=== PATIENT | male | born 1965 | race Caucasian/White ===

== ENCOUNTER 2019-03-23 12:43 | Observation (INO) | payer OTHER ==
[~2019-03-23] VITALS: Ht 172.7 cm; Wt 104.3 kg
[2019-03-23 13:42] LABS: BASOPHILS # (AUTO) 0.1 (0.0-0.1); BASOPHILS % 0.9 % (0.0-1.0); EOSINOPHILS # (AUTO) 0.3 (0.0-0.4); EOSINOPHILS % 3.1 % (0.0-6.0); HEMATOCRIT 39.4 % (38.2-49.6); HEMOGLOBIN 11.7 g/dL (14.0-18.0); LYMPHOCYTES # (AUTO) 2.2 (1.0-3.2); LYMPHOCYTES % 23.9 % (18.0-39.1); MEAN CORPUSCULAR HEMOGLOBIN 21.1 pg (28-32); MEAN CORPUSCULAR HGB CONC 29.7 g/dL (31-35); MONOCYTES # (AUTO) 0.8 (0.2-0.8); MONOCYTES % 8.1 % (4.4-11.3); NEUTROPHILS % 63.7 % (38.7-80.0); PLATELET COUNT 322 x10e3/uL (140-360); RED BLOOD COUNT 5.55 x10e6/uL (4.3-5.7)
[2019-03-23 13:54] LABS: INR 0.94; PARTIAL THROMBOPLASTIN TIME 24.8 seconds (23.8-35.5); PROTHROMBIN TIME 13.1 seconds (11.9-14.5)
--- NOTE | 2019-03-23 14:00 | Diagnostic Imaging Report ---
CT BRAIN WO HISTORY: Unresponsive COMPARISON: None. TECHNIQUE: Noncontrast axial scans were obtained from skull base to the vertex. Coronal and sagittal reconstructions obtained from the axial data. One or more of the following dose reduction techniques were used: Automated exposure control, adjustment of the mA and/or kV according to patient size, and/or utilization of iterative reconstruction technique. DISCUSSION: Scalp/Skull: Unremarkable. Brain sulci: Appropriate for patient's age. Ventricles: Normal in size and configuration. No hydrocephalus. Extra-axial spaces: No masses or fluid collections. Parenchyma: No abnormal densities. No mass, hemorrhage, or large vascular territory acute infarct. Dural sinuses: No abnormal densities. Sellar/Suprasellar region: Intact. Skull base: Intact. Incidental findings: Minimal carotid siphon calcifications. IMPRESSION: No acute intracranial abnormalities. Signed by: Dr. Omer Smith M.D. on 03/23/2019 1:57 PM
[2019-03-23 14:01] LABS: ALANINE AMINOTRANSFERASE 25 IU/L (0-55); ALBUMIN 3.8 g/dL (3.5-5.0); ALBUMIN/GLOBULIN RATIO 1.3 (0.8-2.0); ALKALINE PHOSPHATASE 47 IU/L (40-150); ANION GAP 14.6 mmol/L (8-16); BLOOD UREA NITROGEN 13 mg/dL (7-26); BUN/CREATININE RATIO 13 (6-25); CALCIUM 8.7 mg/dL (8.4-10.2); CARBON DIOXIDE 20 mmol/L (22-29); CHLORIDE 109 mmol/L (98-107); CREATINE KINASE 113 IU/L (30-200); EST GLOMERULAR FILTRATION RATE > 60 ML/MIN (60-); GLUCOSE 84 mg/dL (74-118); POTASSIUM 3.6 mmol/L (3.5-5.1); SODIUM 140 mmol/L (136-145)
--- NOTE | 2019-03-23 14:51 | Diagnostic Imaging Report ---
EXAMINATION: CHEST SINGLE (PORTABLE) INDICATION: Chest pain COMPARISON: None FINDINGS: LINES/TUBES:EKG leads overlie the chest. LUNGS:The lungs are well-inflated. No focal consolidation or pulmonary edema. PLEURA:No pleural effusion or pneumothorax. MEDIASTINUM:The cardiomediastinal silhouette appears normal in size and shape. BONES/SOFT TISSUES:No acute osseous injury. ABDOMEN:No free air under the diaphragm. IMPRESSION: No focal pneumonia or pulmonary edema. Signed by: Juan Melo MD on 03/23/2019 2:47 PM
[2019-03-23] MEDS ORDERED: ASPIRIN 325 MG TAB EC PO ONE (15:45)
[2019-03-23] MEDS: SODIUM CHLORIDE 0.9% 1000ML 1,000 ML IV SCH ×2 (18:30→23:33)
--- NOTE | 2019-03-23 18:52 | Diagnostic Imaging Report ---
History: Seizure versus TIA, unresponsive Comparison studies: Head CT on 03/23/2019 Technique: Sagittal T2; axial DWI, FLAIR, MPGR, T1, Coronal FLAIR. Intravenous contrast: None Findings: Scalp: Normal in signal . No masses . Bone marrow: Normal in signal intensity. Extra-axial: No masses or fluid collections. Brain sulci: Appropriate for age. Ventricles: Normal in size . No hydrocephalus . Parenchyma: A T2 FLAIR hyperintense focus adjacent to the tip of the left frontal horn is nonspecific. Otherwise, no signal abnormalities. No masses, hemorrhage, acute or chronic cortical ischemic insults. Suprasellar region: No abnormalities. Craniocervical junction: No abnormalities. Patent foramen magnum. No Chiari one malformation. Vessels: Normal flow-voids in the arteries and sinuses. Incidental findings: * Mildly enlarged partially empty sella. * The pituitary stalk is slightly deviated toward the right. * No gross intra or suprasellar abnormalities but evaluation of this region is limited on this brain MRI Incidental T2 hyperintense mucosal thickening in several ethmoid air cells. IMPRESSION: 1. No acute abnormalities. 2. No findings to explain patient's history. 3. Focal ischemic/gliotic changes adjacent to the left frontal horn are nonspecific. Signed by: Dr. Meir Nice M.D. on 03/23/2019 6:48 PM
--- NOTE | 2019-03-23 19:21 | NUR ---
Report and care hand off given to HANK Castaneda. Pt denies any pain or discomfort at the present time. Spouse at bedside.
--- NOTE | 2019-03-23 21:40 | NUR ---
RECEIVED PATIENT FROM ED AT THIS TIME. PATIENT AMBULATED FROM WHEELCHAIR TO CHAIR, STEADY GAIT NOTED. PATIENT A&OX3. NO PAIN REPORTED. NO S&S OF DISTRESS NOTED. ADMISSION ASSESSMENT COMPLETED. L AC 20G IV ASYMPTOMATIC, INTACT, AND PATENT. WILL CONTINUE TO MONITOR CLOSELY. BED LOCKED IN LOWEST POSITION, SIDE RAILS UPX2, CALL LIGHT IN REACH.
[2019-03-23 22:11] VITALS: BP 141/84
[2019-03-23] MEDS ORDERED: HYDRALAZINE HCL 20 MG/ML VIAL IV PRN (22:45)
[2019-03-23] MEDS ORDERED: DEXTROSE 50% SYRINGE 50 ML IV PRN (22:45)
[2019-03-23 23:15] VITALS: BP 141/84
[2019-03-23] MEDS ORDERED: METOPROLOL TART25 MG PO (23:21)
[2019-03-23] MEDS ORDERED: METFORMIN HCL500 MG PO (23:21)
[2019-03-23] MEDS ORDERED: LISINOPRIL10 MG PO (23:21)
[2019-03-24] VITALS (8 sets, daily range): BP systolic 135–145; BP diastolic 69–85
--- NOTE | 2019-03-24 04:39 | History and Physical ---
[facility] PHYSICIAN: Dr. Trent Ca. This is coverage for Dr. Ca. HISTORY OF PRESENT ILLNESS: Mr. Ma is a pleasant 53-year-old gentleman with altered sensorium today. The patient was sitting down at work today at approximately 10:50 a.m. He became unresponsive. His coworkers had shake him to awake him, which did not occur easily. He recalls he had trouble getting words out earlier in the morning. The patient otherwise has not had a history of any neurologic events in the past. Never had any strokes nor seizures either in youth. The patient was brought in by coworkers. Therefore, did not get an immediate glucose check, but at about 1.5 hours after the event his fingerstick glucose was 85 after being given some sugar. He has hypoglycemic spells about once a year only and these are not a chronic problem. He comes to the emergency room. CT head was unremarkable. MRI did have finding of focal ischemic/gliotic changes that adjacent to left frontal horn, which are nonspecific. He also had an enlarged partially empty sella with deviation of the pituitary stalk toward the right. PAST MEDICAL HISTORY: Hypertension, diabetes, obstructive sleep apnea on CPAP. MEDICATIONS: Per medication list. ALLERGIES: NO KNOWN DRUG ALLERGIES. SOCIAL HISTORY: No smoking. No drinking. No drugs. 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 He lives with his spouse, which is moved past in the area in an apartment. FAMILY HISTORY: Noncontributory. REVIEW OF SYSTEMS: GENERAL: No weight changes. OPHTHALMOLOGIC: No double vision. ENT: No mouth ulcers. ENDOCRINE: No thyroid disease known. PULMONARY: No asthma. CARDIAC: No heart attacks. GI: No constipation. : No blood in urine. NEUROLOGIC: No history of concussions. PSYCHIATRIC: No depression. DERMATOLOGIC: No rash. OBJECTIVE: VITAL SIGNS: Afebrile, vital signs noted and reviewed per the chart record. GENERAL: In no acute distress, alert and cooperative. HEENT: Normocephalic, atraumatic. NECK: Supple. Throat midline. LUNGS: Bilateral air entry, clear. CARDIOVASCULAR: S1, S2. No murmurs, rubs, or gallops. ABDOMINAL: Soft, nontender. EXTREMITIES: No clubbing, no cyanosis. There is only trace edema to the legs. INTEGUMENT: No rash, no purpura. LABORATORY DATA: 3.6 potassium, 13 BUN, creatinine 1.0. BNP was 24. Troponin 0.016. LFTs unremarkable. IMPRESSION: 1. Acute neurologic event, under investigation. Possible stroke versus seizure versus other. 2. Abnormal MRI, left frontal more nonspecific change. Possible focal ischemia versus gliotic changes versus other. 3. Abnormal MRI, partially empty sella with pituitary stalk deviation right words. 4. Obstructive sleep apnea, on CPAP. 5. Diabetes with once yearly hypoglycemia. 6. Hypertension. 7. Obesity. Check hemoglobin A1c. Neurologic consult. Check TSH. Give CPAP while inpatient as he requests. Control diabetes and blood pressure while here. Thank you very much, Dr. Ca. Please call for questions. MD DEMETRI Siddiqi/MODL /[id number]
[2019-03-24 05:51] LABS: BASOPHILS # (AUTO) 0.1 (0.0-0.1); BASOPHILS % 0.7 % (0.0-1.0); EOSINOPHILS # (AUTO) 0.3 (0.0-0.4); EOSINOPHILS % 3.6 % (0.0-6.0); HEMATOCRIT 37.5 % (38.2-49.6); LYMPHOCYTES # (AUTO) 1.9 (1.0-3.2); LYMPHOCYTES % 21.9 % (18.0-39.1); MEAN CORPUSCULAR HEMOGLOBIN 20.8 pg (28-32); MEAN CORPUSCULAR HGB CONC 29.3 g/dL (31-35); MONOCYTES # (AUTO) 0.7 (0.2-0.8); MONOCYTES % 8.4 % (4.4-11.3); NEUTROPHILS # (AUTO) 5.5 (2.1-6.9); NEUTROPHILS % 64.9 % (38.7-80.0); PLATELET COUNT 282 x10e3/uL (140-360); RED BLOOD COUNT 5.28 x10e6/uL (4.3-5.7); RED CELL DISTRIBUTION WIDTH 16.9 % (11.7-14.4)
[2019-03-24 06:10] LABS: ANION GAP 11.8 mmol/L (8-16); BLOOD UREA NITROGEN 13 mg/dL (7-26); BUN/CREATININE RATIO 13 (6-25); CALCIUM 8.3 mg/dL (8.4-10.2); CARBON DIOXIDE 23 mmol/L (22-29); CHLORIDE 108 mmol/L (98-107); CREATININE, SERUM 1.02 mg/dL (0.72-1.25); EST GLOMERULAR FILTRATION RATE > 60 ML/MIN (60-); GLUCOSE 119 mg/dL (74-118); MAGNESIUM 2.1 MG/DL (1.3-2.1); PHOSPHORUS 3.5 MG/DL (2.3-4.7); POTASSIUM 3.8 mmol/L (3.5-5.1); SODIUM 139 mmol/L (136-145)
[2019-03-24 06:47] LABS: FREE THYROXINE INDEX 2.1242 (1.4-3.8); THYROID STIMULATING HORMONE 2.014 uIU/mL (0.350-4.940)
[2019-03-24] MEDS: SODIUM CHLORIDE 0.9% 1000ML 1,000 ML IV SCH ×3 (07:33→23:33)
[2019-03-24] MEDS: ASPIRIN 325 MG TAB EC PO SCH (09:50)
--- NOTE | 2019-03-24 17:23 | NUR ---
54-year-old gentleman presented to the hospital Subjective: Patient is doing fine in no distress. No chest pain, no fever, no chills, no headache, no confusion. PAST MEDICAL HISTORY: Hypertension, diabetes, obstructive sleep apnea on CPAP. MEDICATIONS: Per medication list. ALLERGIES: NO KNOWN DRUG ALLERGIES. SOCIAL HISTORY: No smoking. No drinking. No drugs. 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 The patient was doing fine at the time of my evaluation. The patient was in no distress. HEENT: No gross abnormalities Neck: Supple no JVD Lungs: Clear to auscultation Heart: Regular rate and rhythm, no murmurs no gallops Abdomen: Soft non tender, no guarding. Extremities: No edema Neurologic: Alert oriented 3, no focal weakness. Psychiatrist: Normal mood, normal judgment. Skin: No rashes REVIEW OF SYSTEMS: GENERAL: No weight changes. OPHTHALMOLOGIC: No double vision. ENT: No mouth ulcers. ENDOCRINE: No thyroid disease known. PULMONARY: No asthma. CARDIAC: No heart attacks. GI: No constipation. : No blood in urine. NEUROLOGIC: No history of concussions. PSYCHIATRIC: No depression. DERMATOLOGIC: No rash. OBJECTIVE: VITAL SIGNS: Afebrile, vital signs noted and reviewed per the chart record. GENERAL: In no acute distress, alert and cooperative. HEENT: Normocephalic, atraumatic. NECK: Supple. Throat midline. LUNGS: Bilateral air entry, clear. CARDIOVASCULAR: S1, S2. No murmurs, rubs, or gallops. ABDOMINAL: Soft, nontender. EXTREMITIES: No clubbing, no cyanosis. There is only trace edema to the legs. INTEGUMENT: No rash, no purpura. LABORATORY DATA: 3.6 potassium, 13 BUN, creatinine 1.0. BNP was 24. Troponin 0.016. LFTs unremarkable. IMPRESSION: 1. Acute neurologic event, no evidence of stroke, doubt seizures other. 2. Abnormal MRI, left frontal more nonspecific change. Possible focal ischemia versus gliotic changes versus other. 3. Abnormal MRI, partially empty sella with pituitary stalk deviation right words. 4. Obstructive sleep apnea, on CPAP. 5. Diabetes with once yearly hypoglycemia. 6. Hypertension. 7. Obesity. Plan of care Neurologic consult. Check TSH. Give CPAP while inpatient as he requests. Control diabetes and blood pressure. Neuro consult
--- NOTE | 2019-03-24 19:17 | NUR ---
WALKING ROUNDS PERFORMED, RECEIVED PT LAYING SEMI FOWLERS IN BED, AAOX3, RR EVEN AND NON-LABORED, ON ROOM AIR. NO S/SX OF DISTRESS NOTED. LEFT PT LAYING SEMI FOWLERS IN BED, BED IN LOW LOCKED POSITION, SIDE RAILS UPX2, CALL LIGHT AND PHONE WITHIN REACH.
[2019-03-24] MEDS ORDERED: LEVETIRACETAM 500 MG TAB PO SCH (21:00)
[2019-03-25] VITALS: BP 138/80
[2019-03-25 04:00] VITALS: BP 123/72
[2019-03-25] MEDS: SODIUM CHLORIDE 0.9% 1000ML 1,000 ML IV SCH (07:33)
[2019-03-25 08:10] VITALS: BP 136/78
[2019-03-25 08:29] VITALS: BP 136/78
[2019-03-25] MEDS: ASPIRIN 325 MG TAB EC PO SCH (08:32)
--- NOTE | 2019-03-25 08:32 | NUR ---
md greenwood for neuro rounded on pt and states pt can be dc and follow up with him in 2 weeks asked for pt to be kept on taylor
[2019-03-25] MEDS ORDERED: LEVETIRACETAM 500 MG TAB PO SCH (09:00)
[2019-03-25 10:13] VITALS: BP 149/88
[2019-03-25] MEDS ORDERED: KEPPRA500 MG PO (10:56)
[2019-03-25] MEDS ORDERED: ASPIR 8181 MG PO (11:06)
[2019-03-25 11:45] VITALS: BP 144/80
--- NOTE | 2019-03-25 12:06 | NUR ---
DC INSTRUCTIONS AND PRESCRIPTIONS GIVEN PT VERBALIZED UNDERSTANDING IV DC PRESSURE DRESSING APPLIED AND TAPED PT IS NOW OFF UNIT TO HOME
--- OUTSIDE RECORDS SUMMARY | 2019-03-27 12:51 | XMS REPORT ---
Author [facility] Address Unknown Phone Unavailable Care Team Providers Care Automobile Radio Repairer Name Role Phone William ELKINS Unavailable Unavailable Problems This patient has no known problems. Allergies, Adverse Reactions, Alerts This patient has no known allergies or adverse reactions. Medications This patient has no known medications. Results Test Description Test Time Test Comments Text Results Atomic Results Result Comments MRI BRAIN WO 2019-03-23 18:40:00 [facility] [address] [address] Patient Name: JASMYN VALDES MR #: [id number] : 1965 Age/Sex: 53/M Req #: [id number] Adm Physician: TOM ELKINS M.D. Ordered by: ANA RENEE MD Report #: [id number] Location: [facility] Room/Bed: [place] [address] Procedure: [id number] MRI/MRI BRAIN WO Exam Date: Exam Time: REPORT STATUS: Signed History: Seizure versus TIA, unresponsive Comparison studies: Head CT on 03/23/2019 Technique: Sagittal T2; axial DWI, FLAIR, MPGR, T1, Coronal FLAIR. Intravenous contrast: None Findings: Scalp: Normal in signal . No masses . Bone marrow: Normal in signal intensity. Extra- axial: No masses or fluid collections. Brain sulci: Appropriate for age. Ventricles: Normal in size . No hydrocephalus . Parenchyma: A T2 FLAIR hyperintense focus adjacent to the tip of the left frontal horn is nonspecific. Otherwise, no signal abnormalities. No masses, hemorrhage, acute or chronic cortical ischemic insults. Suprasellar region: No abnormalities. Craniocervical junction: No abnormalities. Patent foramen magnum. No Chiari one malformation. Vessels: Normal flow-voids in the arteries and sinuses. Incidental findings: * Mildly enlarged partially empty sella. * The pituitary stalk is slightly deviated toward the right. * No gross intra or suprasellar abnormalities but evaluation of this region is limited on this brain MRI Incidental T2 hyperintense mucosal thickening in several ethmoid air cells. IMPRESSION: 1. No acute abnormalities. 2. No findings to explain patient's history. 3. Focal ischemic/gliotic changes adjacent to the left frontal horn are nonspecific. Signed by: Dr. Meir Nice M.D. on 03/23/2019 6:48 PM Dictated By: MEIR NICE MD, MD 47 Transcribed By: ANANYA on 03/23/191847 COPY TO: ANA RENEE MD CHEST SINGLE (PORTABLE) 2019-03-23 14:47:00 [address] [address] Patient Name: JASMYN VALDES MR #: [id number] : 1965 Age/Sex: 53/M Req #: [id number] Adm Physician: Ordered by: ANA RENEE MD Report #: [id number] Location: ER Room/Bed: Procedure: [id number] DX/CHEST SINGLE (PORTABLE) Exam Date: 03/23/19 Exam Time: 1330 REPORT STATUS: Signed EXAMINATION: CHEST SINGLE (PORTABLE) INDICATION: Chest pain COMPARISON: None FINDINGS: LINES/TUBES:EKG leads overlie the chest. LUNGS:The lungs are well-inflated. No focal consolidation or pulmonary edema. PLEURA:No pleural effusion or pneumothorax. MEDIASTINUM:The cardiomediastinal silhouette appears normal in size and shape. BONES/SOFT TISSUES:No acute osseous injury. ABDOMEN:No free air under the diaphragm. IMPRESSION: No focal pneumonia or pulmonary edema. Signed by: Juan R Melo MD on 03/23/2019 2:47 PM Dictated By: JUAN R MELO MD 144 Transcribed By: ANANYA on 03/23/19 144 COPY TO: ANA RENEE MD CT BRAIN WO 2019-03-23 13:54:00 [address] [address] Patient Name: JASMYN VALDES MR #: [id number] : 1965 Age/Sex: 53/M Req #: [id number] Adm Physician: Ordered by: ANA RNEEE MD Report #: [id number] Location: ER Room/Bed: Procedure: [id number] CT/CT BRAIN WO Exam Date: 03/23/19 Exam Time: 1330 REPORT STATUS: Signed CT BRAIN WO HISTORY: Unresponsive COMPARISON: None. TECHNIQUE: Noncontrast axial scans were obtained from skull base to the vertex. Coronal and sagittal reconstructions obtained from the axial data. One or more of the following dose reduction techniques were used: Automated exposure control, adjustment of the mA and/or kV according to patient size, and/or utilization of iterative reconstruction technique. DISCUSSION: Scalp/Skull: Unremarkable. Brain sulci: Appropriate for patient's age. Ventricles: Normal in size and configuration. No hydrocephalus. Extra-axial spaces: No masses or fluid collections. Parenchyma: No abnormal densities. No mass, hemorrhage, or large vascular territory acute infarct. Dural sinuses: No abnormal densities. Sellar/Suprasellar region: Intact. Skull base: Intact. Incidental findings: Minimal carotid siphon calcifications. IMPRESSION: No acute intracranial abnormalities. Signed by: Dr. Omer Smith M.D. on 03/23/2019 1:57 PM Dictated By: OMER SMITH MD [id number] Transcribed By: ANANYA on 03/23/19 1350 COPY TO: ANA RENEE MD
--- NOTE | 2019-03-27 19:51 | Consultation ---
DATE OF CONSULTATION: 03/25/2019 Neurological consultation. Seen for possible seizures. HISTORY OF PRESENT ILLNESS: Mr. Ma is a 53-year-old male who comes under my attention for possible seizures. He has a history of diabetes, was on pacemaker at the time of his admission. He reports no history of seizures or convulsions. Reports that he is doing his job. He became suddenly unresponsive with staring spell and was transferred by EMS to the hospital. He has history of epilepsy. Review of systems is entirely negative. FAMILY HISTORY: Negative for epilepsy. SOCIAL HISTORY: Negative for alcohol, tobacco or drugs. PHYSICAL EXAMINATION: VITAL SIGNS: Stable. He is afebrile. Blood pressure is 120s/70s, heart rate is 88. HEENT: Extraocular muscles intact. Face midline. Tongue is midline. Speech is clear. Trachea is midline. No nuchal rigidity. NECK: No lymphadenopathy. No thyroid nodules. CARDIOVASCULAR: Regular rate and rhythm. PULMONARY: Clear. ABDOMEN: Soft and nontender. NEUROLOGIC: Strength is 5/5 in the upper and lower extremities. No ataxia. ASSESSMENT AND PLAN: I am seeing the patient for possible seizures. No evidence of epilepsy . Diagnostic studies, MRI is normal other than a small bihemispheric gliosis. Because of this we might be slightly suspicious . Monitor him for possible recurrence, see him as an outpatient for EEG and workup. It sounds like he has epilepsy diagnostic clearance and follow him clinically going forward. EYAD LOPEZ MD RR/MODL /[id number]
--- NOTE | 2019-05-14 13:24 | Discharge Summary ---
FINAL DIAGNOSES: 1. Altered mental status, unspecified. 2. History of hypertension. 3. Obstructive sleep apnea. 4. Obesity. 5. Presence of cardiac pacemaker. 6. Type 2 diabetes mellitus without complications. 7. Unspecified convulsions. HOSPITAL COURSE: Mr. Ma is a very pleasant 53-year-old gentleman, admitted to the hospital with altered mental status from his baseline and the patient is noted to have a history of hypertension, diabetes mellitus, and obstructive sleep apnea, for which he is presently on CPAP. The patient did have MRI and the findings were that of ischemic/gliotic changes that adjacent to below frontal horn, which were nonspecific. He was noted to have an enlarged partially empty sella with deviation of towards the right. Basically, the patient did remain in stable condition. He was followed by Neurology, did well and seen by Dr. Dewey from neuro standpoint, who determined the patient was stable for discharge and will have followup with EEG outpatient workup. Instructions were given Neuro regarding restrictions. The patient has done well and he is being discharged in stable condition and doubt he had a seizure episode. DIET: diet. ACTIVITY LEVEL: As tolerated. CONDITION AT THE TIME OF DISCHARGE: Stable. DISPOSITION: The patient is being advised to follow up with patient's primary care physician. MD JAKI Mcgregor/MANN /[id number]
== END 2019-03-25 12:03 | disposition home or self-care (01) ==
LOC: ER 12:43 → ERHOLD 15:33 → INTOOBSV 15:33 → MED/SURG 21:50
PROVIDERS: ADMIT Internal Medicine; ATTEND Internal Medicine
DX: R56.9 Unspecified convulsions (principal); G47.33 Obstructive sleep apnea (adult) (pediatric); E66.9 Obesity, unspecified; Z68.35 Body mass index [BMI] 35.0-35.9, adult; Z95.0 Presence of cardiac pacemaker; I10 Essential (primary) hypertension; R93.89 Abnormal findings on diagnostic imaging of other specified body structures; E11.9 Type 2 diabetes mellitus without complications
CPT/HCPCS: 36415 ×3; 70450; 70551; 71045; 80048; 80053; 82550; 82553; 82948 ×3; 83036; 83735; 83880; 84100; 84436; 84443; 84479; 84484; 85025 ×2; 85610; 85730; 93005; 93306; 94660 ×2; 97161; 99284; G0378 ×3; J7030 ×2

== ENCOUNTER 2020-02-22 13:18 | Observation (INO) | payer OTHER ==
[~2020-02-22] VITALS: Ht 172.7 cm; Wt 99.8 kg
[~2020-02-22 13:18] MED LIST: ASPIR 8181 MG PO; KEPPRA500 MG PO; LISINOPRIL10 MG PO; METFORMIN HCL500 MG PO; METOPROLOL TART25 MG PO
[2020-02-22] MEDS ORDERED: ONDANSETRON HCL INJ 2MG/ML 2ML 2 MG/ML VIAL IV NR (13:44)
[2020-02-22] MEDS ORDERED: SODIUM CHLORIDE 0.9% 1000ML 1,000 ML IV STA (13:44)
[2020-02-22] MEDS ORDERED: MORPHINE SULFATE 2 MG/ML SYR 1ML IV NR (13:44)
--- NOTE | 2020-02-22 13:44 | Emergency Department Note ---
History of Present Illnes History of Present Illness Chief Complaint: Chest Pain History of Present Illness This is a 54 year old male PATIENT IN FROM HOME WITH COMPLAINTS OF RORY ST PAIN OFF AND ON X 6 DAYS, RADIATES TO BACK. +ASSOC SOB AND "CLAMMY"; STATES IT HAS BEEN CONSTANT SINCE THIS AFTERNOON. PATIENT ALERT AND ORIENTED, RESP EVEN AND NONLABORED, APPEARS IN NO DISTRESS, AMBULATORY WITHOUT ASSISTANCE, RATES PAIN 5/10. Historian: Patient Arrival Mode: Car Application Systems Administrator Required: No Onset (how long ago): day(s) (6) Location: CHEST Quality: PRESSURE Radiation: Reports back Severity: moderate Onset quality: gradual Timing of current episode: intermittent Progression: waxing and waning Chronicity: new Context: Denies recent illness Relieving factors: none Exacerbating factors: none Associated symptoms: Reports diaphoresis, Reports shortness of breath Past Medical/Family History Physician Review I have reviewed the patient's past medical and family history. Any updates have been documented here. Past Medical History Recent Fever: No Clinical Suspicion of Infectio: No New/Unexplained Change in Ment: No Past Medical History: Hypertension, Diabetes, Hyperlipedemia Other Medical History: Sleep Apnea-uses CPAP at night Other Surgery: Left knee bilateral Ankle surgery Social History Smoking Cessation: Never Smoker Counseling Performed: No Alcohol Use: Social Any Illegal Drug Use: No TB Exposure/Symptoms: No Physically hurt or threatened: No Family History Family history of heart diseas: Yes Other Any Pre-Existing Lines (PICC,: No Review of Systems Review of Systems Constitutional: Reports no symptoms EENTM: Reports no symptoms Cardiovascular: Reports as per HPI Respiratory: Reports no symptoms Gastrointestinal: Reports no symptoms Genitourinary: Reports no symptoms Musculoskeletal: Reports no symptoms Integumentary: Reports no symptoms Neurological: Reports no symptoms Psychological: Reports no symptoms Endocrine: Reports no symptoms Hematological/Lymphatic: Reports no symptoms Physical Exam Related Data Allergies: Coded Allergies: No Known Allergies (Unverified , 02/22/20) Triage Vital Signs Vital Signs Date Time Temp Pulse Resp B/P (MAP) Pulse Ox O2 Delivery O2 Flow Rate FiO2 02/22/20 13:25 96.3 69 20 152/93 99 Room Air Vital signs reviewed: Yes Physical Exam CONSTITUTIONAL Constitutional: Present well-developed, Present well-nourished HENT HENT: Present normocephalic, Present atraumatic, Present oropharynx clear/moist, Present nose normal HENT L/R: Present left ext ear normal, Present right ext ear normal EYES Eyes: Reports PERRL, Reports conjunctivae normal NECK Neck: Present ROM normal PULMONARY Pulmonary: Present effort normal, Present breath sounds normal CARDIOVASCULAR Cardiovascular: Present regular rhythm, Present heart sounds normal, Present capillary refill normal, Present normal rate GASTROINTESTINAL Abdominal: Present soft, Present nontender, Present bowel sounds normal GENITOURINARY Genitourinary: Present exam deferred SKIN Skin: Present warm, Present dry MUSCULOSKELETAL Musculoskeletal: Present ROM normal NEUROLOGICAL Neurological: Present alert, Present oriented x 3, Present no gross motor or sensory deficits PSYCHOLOGICAL Psychological: Present mood/affect normal, Present judgement normal Results Laboratory Laboratory Laboratory Tests Test 02/22/20 13:40 White Blood Count 7.29 x10e3/uL (4.8-10.8) Red Blood Count 4.96 x10e6/uL (4.3-5.7) Hemoglobin 13.4 g/dL (14.0-18.0) Hematocrit 39.4 % (38.2-49.6) Mean Corpuscular Volume 79.4 fL (81-99) Mean Corpuscular Hemoglobin 27.0 pg (28-32) Mean Corpuscular Hemoglobin Concent 34.0 g/dL (31-35) Red Cell Distribution Width 15.2 % (11.7-14.4) Platelet Count 234 x10e3/uL (140-360) Neutrophils (%) (Auto) 72.6 % (38.7-80.0) Lymphocytes (%) (Auto) 18.4 % (18.0-39.1) Monocytes (%) (Auto) 6.6 % (4.4-11.3) Eosinophils (%) (Auto) 1.4 % (0.0-6.0) Basophils (%) (Auto) 0.7 % (0.0-1.0) Neutrophils # (Auto) 5.3 (2.1-6.9) Lymphocytes # (Auto) 1.3 (1.0-3.2) Monocytes # (Auto) 0.5 (0.2-0.8) Eosinophils # (Auto) 0.1 (0.0-0.4) Basophils # (Auto) 0.1 (0.0-0.1) Absolute Immature Granulocyte (auto 0.02 x10e3/uL (0-0.1) Prothrombin Time 13.2 seconds (11.9-14.5) Prothromb Time International Ratio 0.95 Activated Partial Thromboplast Time 25.0 seconds (23.8-35.5) D-Dimer Quantitative (PE/DVT) 0.43 ug/mLFEU (0.00-0.45) Sodium Level 139 mmol/L (136-145) Potassium Level 3.7 mmol/L (3.5-5.1) Chloride Level 108 mmol/L (98-107) Carbon Dioxide Level 24 mmol/L (22-29) Anion Gap 10.7 mmol/L (8-16) Blood Urea Nitrogen 13 mg/dL (7-26) Creatinine 0.73 mg/dL (0.72-1.25) Estimat Glomerular Filtration Rate > 60 ML/MIN (60-) BUN/Creatinine Ratio 18 (6-25) Glucose Level 89 mg/dL (74-118) Calcium Level 8.6 mg/dL (8.4-10.2) Total Bilirubin 0.4 mg/dL (0.2-1.2) Aspartate Amino Transf (AST/SGOT) 22 IU/L (5-34) Alanine Aminotransferase (ALT/SGPT) 30 IU/L (0-55) Alkaline Phosphatase 54 IU/L (40-150) Creatine Kinase 110 IU/L (30-200) Creatine Kinase MB 3.00 ng/mL (0-5.0) Troponin I 0.009 ng/mL (0-0.300) B-Type Natriuretic Peptide 43.2 pg/mL (0-100) Total Protein 6.9 g/dL (6.5-8.1) Albumin 4.2 g/dL (3.5-5.0) Globulin 2.7 g/dL (2.3-3.5) Albumin/Globulin Ratio 1.6 (0.8-2.0) Lab results reviewed: Yes Imaging Imaging results reviewed: Yes Procedures 12 Lead ECG Interpretation ECG Interpretation : ECG: ECG 1 Application Systems Administrator: Interpreted by ED physician Date: Feb 22, 2020 Time: 13:32 Rhythm: sinus rhythm Rate: normal BPM: 72 QRS axis: normal ST segments normal: Yes T waves normal: Yes Additional Comments POOR RWP Assessment & Plan Medical Decision Making MDM CHEST PAIN TYPICAL SX'S AND MULTIPLE RF'S - CBC, CHEM, CARDIACS, D-DIMER, ECG, CXR - R/O STEMI/NSTEMI, PE, PNEUMONIA/NON-CARDIAC CAUSES OF CP Reassessment Reassessment ADMIT TO DR CRESPO Assessment & Plan Final Impression: (1) Chest pain Depart Disposition: ADMITTED Last Vital Signs Date Time Temp Pulse Resp B/P (MAP) Pulse Ox O2 Delivery O2 Flow Rate FiO2 02/22/20 13:25 96.3 69 20 152/93 99 Room Air Home Meds Active Scripts Aspirin (ASPIR 81) 81 Mg Tablet.dr, 81 MG PO DAILY for 30 Days, 2 Refills Prov:TOM ELKINS MD 03/25/19 Levetiracetam (KEPPRA) 500 Mg Tablet, 500 MG PO BID for 30 Days, 1 Refill Prov:TOM ELKINS MD 03/25/19 Reported Medications Metformin Hcl (METFORMIN HCL) 500 Mg Tablet, 1000 MG PO BID, #60 TAB 03/23/19 Metoprolol Tartrate (METOPROLOL TARTRATE) 25 Mg Tablet, 12.5 MG PO BID, TAB 03/23/19 Lisinopril (LISINOPRIL) 10 Mg Tablet, 10 MG PO DAILY, #30 TAB 03/23/19 ANYA DUPREE MD Feb 22, 2020 13:44
[2020-02-22] MEDS ORDERED: ASPIRIN 81 MG CHEW TAB PO NR (13:45)
[2020-02-22] MEDS ORDERED: PANTOPRAZOLE 40 MG 10ML VIAL IV NR (14:00)
[2020-02-22] MEDS ORDERED: ENOXAPARIN SODIUM INJ 100 MG/ML SYR SC ONE (14:00)
--- OUTSIDE RECORDS SUMMARY | 2020-02-22 14:06 | XMS REPORT | Continuity of Care Document ---
Author Author [facility] t Organization [facility] Address [address] [place] [address] Phone Unavailable Care Team Providers Care Deburring Technician Name Role Phone NONSTAFF PCP Unavailable Florin Eid Attphys William ELKINS Attphys Unavailable Milly Montgomery RN Attphys Unavailable William ELKINS Admphys Unavailable Payers Payer Name Policy Type Policy Number Effective Date Expiration Date Alireza humphrey VENU OPEN ACCESS/[id number] 2016-PresentO [id number] 2016 00:00:00 Rishabh Pavon Cigvandana o [id number] 2016 00:00:00 [facility] Problems Condition Name Condition Details Condition Category Status Onset Date Resolution Date Last Treatment Date Treating Clinician Comments Source Screening for colon cancer Screening for colon cancer Disease Active 2018-06-05 00:00:00 Overview: Added automaticall y from request for surgery [id number] Rishabh Pavon Chest pain Chest pain Disease Active 2016-11-01 00:00:00 Rishabh Pavon Allergic rhinitis Allergic rhinitis Disease Active 2015-06-10 00:00:00 Rishabh Pavon Axillary lymphadenopathy Axillary lymphadenopathy Disease Acti ve 2015-06-10 00:00:[address] Chest pain Chest pain Disease Active 2015-06-10 00:00:00 Rishabh Pavon Diabetes mellitus Diabetes mellitus Disease Active 2015-06-10 00:00:00 Rishabh Pavon Hypertension Hypertension Disease Active 2015-06-10 00:00:00 Rishabh Pavon Iron deficiency anemia Iron deficiency anemia Disease Active 2015-06-10 00:00:[address] Low back pain Low back pain Disease Active 2015-06-10 00:00:00 Rishabh Pavon Obesity Obesity Disease Active 2015-06-10 00:00:00 Rishabh Pavon Upper respiratory infection Upper respiratory infection Disease Active 2015-06-10 00:00:00 Rishabh Pavon Vitamin B deficiency Vitamin B deficiency Disease Active 00:00:00 Rishabh Pavon Vitamin D deficiency Vitamin D deficiency Disease Active 00:00:00 Rishabh Pavon Absence epilepsy Absence epilepsy Problem Active [facility] Transient ischemic attack TIA (transient ischemic attack) Problem Active [facility] Allergies, Adverse Reactions, Alerts This patient has no known allergies or adverse reactions. Family History Family Member Diagnosis Comments Start Date Stop Date Source Natural [facility] father Heart disease Rishabh Pavon Natural father Hypertension Rishabh Pavon Natural mother [facility] Social History Social Habit Start Date Stop Date Quantity Comments Source History SDOH Alcohol Std Drinks Rishabh Pavon History SDOH Alcohol Binge Rishabh Pavon Sex Assigned At Martín stoki Pavon Tobacco use and exposure 2019-01-05 00:00:00 2019-01-05 00:00:00 Neve r used Rishabh Pavon Alcohol intake 2019-01-05 00:00:00 2019-01-05 00:00:00 Current drinker of alcohol (finding) Rishabh Pavon History SDOH Alcohol Frequency 2019-01-05 00:00:00 2019-01-05 00:00:0 0 2 Rishabh Pavon Alcohol Comment 2018-06-05 00:00:00 2018-06-05 00:00:00 maybe once a month Rishabh Pavon Smoking Status Start Date Stop Date Source Never smoker Rishabh bond Medications Ordered Medication Name Filled Medication Name Start Date Stop Da te Current Medication? Ordering Clinician Indication Dosage Frequency Signature (SIG) Comments Components Source metFORMIN (GLUCOPHAGE) 1,000 mg tablet 2020-02-22 00:00:00 Yes TAKE 1 TABLET BY MOUTH TWICE A DAY WITH FOOD Rishabh Pavon atorvastatin (LIPITOR) 40 mg tablet 2020-02-16 00:00:00 Yes Mixed hyperlipidemia TAKE 1/2 TABLET BY MOUTH EVERY DAY Rishabh Pavon metFORMIN (GLUCOPHAGE) 1,000 mg tablet 2020-01-08 1 00:00:00 2020-02-22 00:00:00 No TAKE 1 TABLET BY MOUTH TWICE A D AY WITH FOOD Rishabh Pavon metoprolol tartrate (LOPRESSOR) 25 mg tablet 00:00:00 2020-04-23 23:59:00 Yes Essential hypertension TAKE 1 TABLET BY MOUTH TWICE A DAY Rishabh Pavon ferrous gluconate (FERGON) 324 MG tablet 2020-01-03 00:00:00 Yes Iron deficiency anemia, unspecified iron deficiency anemia type TAKE 1 TABLET BY MOUTH EVERY DAY IN THE MORNING WITH BREAKFAST Rishabh Pavon metFORMIN (GLUCOPHAGE) 1,000 mg tablet 2019-12-09 7 00:00:00 2020-01-27 00:00:00 No TAKE 1 TABLET BY MOUTH TWICE A D AY WITH FOOD Rishabh Pavon metFORMIN (GLUCOPHAGE) 1,000 mg tablet 2019-12-05 00:00:00 No TAKE 1 TABLET BY MOUTH TWICE A DAY WITH FOOD Darren Pavon metFORMIN (GLUCOPHAGE) 1,000 mg tablet 3 00:00:00 2019-12-05 00:00:00 No TAKE 1 TABLET BY MOUTH TWICE A D AY WITH FOOD Rishabh Pavon phentermine (ADIPEX-P) 37.5 mg tablet 2019-08-20 00:00 :00 2019-09-20 23:59:00 No Obesity (BMI 30-39.9) 37.5mg QD Take 1 tablet (37.5 mg total) by mouth daily for 31 days. Rishabh Pvaon phentermine (ADIPEX-P) 37.5 mg tablet 2019-08-18 00:00 :00 2019-08-20 00:00:00 No Obesity (BMI 30-39.9) 37.5mg QD Take 1 tablet (37.5 mg total) by mouth daily for 31 days. Rishabh Pavon metoprolol tartrate (LOPRESSOR) 25 mg tablet 2019-07-28 00:0 0:00 No Essential hypertension TAKE 1 TABLET BY MOUTH TWICE A DAY Rishabh Pavon metFORMIN (GLUCOPHAGE) 1,000 mg tablet 2019-07-08 4 00:00:00 2019-09-09 00:00:00 No TAKE 1 TABLET BY MOUTH TWICE A D AY WITH FOOD Rishabh Pavon ferrous gluconate (FERGON) 324 MG tablet 2019-07-13 00:00:00 No Iron deficiency anemia, unspecified iron deficiency anemia type TAKE 1 TABLET BY MOUTH EVERY DAY IN THE MORNING WITH BREAKFAST Rishabh Pavon metoprolol tartrate (LOPRESSOR) 25 mg tablet 00:00:00 2019-07-28 00:00:00 No Essential hypertension TAKE 1 TABLET BY MOUTH TWICE A DAY Rishabh Pavon metFORMIN (GLUCOPHAGE) 1,000 mg tablet 2019-06-07 8 00:00:00 2019-07-21 00:00:00 No TAKE 1 TABLET BY MOUTH TWICE A D AY WITH FOOD Rishabh Pavon metoprolol tartrate (LOPRESSOR) 25 mg tablet 00:00:00 2019-07-01 00:00:00 No Essential hypertension TAKE 1 TABLET BY MOUTH TWICE A DAY Rishabh Pavon atorvastatin (LIPITOR) 40 MG tablet 2019-05-27 00:00:0 0 2020-02-16 00:00:00 No Mixed hyperlipidemia TAKE 1/2 TABLET BY MOUTH EV CELIA DAY Rishabh Pavon metFORMIN (GLUCOPHAGE) 1,000 mg tablet 2019-05-09 9 00:00:00 2019-06-24 00:00:00 No TAKE 1 TABLET BY MOUTH TWICE A D AY WITH FOOD Rishabh Pavon metoprolol tartrate (LOPRESSOR) 25 mg tablet 00:00:00 2019-06-08 00:00:00 No Essential hypertension TAKE 1 TABLET BY MOUTH TWICE A DAY Rishabh Pavon metFORMIN (GLUCOPHAGE) 1,000 mg tablet 2019-04-09 0 00:00:00 2019-05-27 00:00:00 No TAKE 1 TABLET BY MOUTH TWICE A D AY WITH FOOD Rishabh Pavon metoprolol tartrate (LOPRESSOR) 25 mg tablet 00:00:00 2019-05-11 00:00:00 No Essential hypertension TAKE 1 TABLET BY MOUTH TWICE A DAY Rishabh Pavon metFORMIN (GLUCOPHAGE) 1,000 mg tablet 2019-03-09 3 00:00:00 2019-04-27 00:00:00 No TAKE 1 TABLET BY MOUTH TWICE A D AY WITH FOOD Rishabh Pavon Aspirin (Aspir 81) 81 Mg Tablet. Aspirin (Aspir 81) 81 Mg Tablet. 2019-03-25 00:00:00 Yes Tom Whitman M.d. 81 Daily [facility] Levetiracetam (Keppra) 500 Mg Tablet Levetiracetam (Keppra) 500 Mg Tablet 2019-03-25 00:00:00 Yes Tom Whitman M.d. 500 T wice A Day [facility] metoprolol tartrate (LOPRESSOR) 25 mg tablet 12-18-08 00:00:00 2019-04-13 00:00:00 No Essential hypertension TAKE 1 TABLET BY MOUTH TWICE A DAY Rishabh Pavon metFORMIN (GLUCOPHAGE) 1,000 mg tablet 2019-02-08 0 00:00:00 2019-03-30 00:00:00 No TAKE 1 TABLET BY MOUTH TWICE A D AY WITH FOOD Rishabh Pavon metoprolol tartrate (LOPRESSOR) 25 mg tablet 12-17-12 00:00:00 2019-03-15 00:00:00 No Essential hypertension TAKE 1 TABLET BY MOUTH TWICE A DAY Rishabh Pavon metFORMIN (GLUCOPHAGE) 1,000 mg tablet 4 00:00:00 2019-03-05 00:00:00 No TAKE 1 TABLET BY MOUTH TWICE A D AY WITH FOOD Rishabh Pavon TRULICITY 0.75 mg/0.5 mL pen injector 2019-02-02 00:00:00 Yes Type 2 diabetes mellitus with other specified complication, with long-term current use of insulin (HCC) INJECT 0.75MG SUBCUTANEOUSLY EVERY 7 DAYS Rishabh Pavon ferrous gluconate (FERGON) 324 MG tablet 2019-01 00:00:00 2019-07-13 00:00:00 No Iron deficiency anemia, unspecif ied iron deficiency anemia type 324mg QD Take 1 tablet (324 mg total) by mouth daily with breakfast for 90 days. Rishabh Pavon blood sugar diagnostic strip 2019-01-05 15:01:21 Y es Type 2 diabetes mellitus without complication (HCC) OneTouch Ultra Test st rips Rishabh Pavon blood sugar diagnostic strips (ONETOUCH ULTRA TEST) strip te st strips 2019-01-05 15:01:21 Yes OneTouch Ultra Christopher t strips Rishabh Pavon testosterone cypionate (DEPOTESTOTERONE CYPIONATE) 100 mg/mL injection 2019-01-05 15:01:21 Yes Q7D Inject into the shoulder, thigh, or buttocks once a week. Rishabh Pavon anastrozole (ARIMIDEX) 1 mg chemo tablet 2018-12-20 00:00:00 Yes Q7D once a week. Rishabh Pavon lisinopril-hydrochlorothiazide (PRINZIDE,ZESTORETIC) 20-12.5 mg per tablet 2018-11-25 00:00:00 2019-02-23 23:59:00 No Essential hypertensi on TAKE 1 TABLET BY MOUTH EVERY DAY Rishabh Chung isvarun phentermine (ADIPEX-P) 37.5 mg tablet 2018-09-25 00:00 :00 2019-08-18 00:00:00 No TAKE ONE (1) TABLET(S) BY MOUTH DAILY. Rishabh Pavon topiramate (TOPAMAX) 50 MG tablet 2018-09-19 00:00:00 Yes Rishabh Pavon atorvastatin (LIPITOR) 40 MG tablet 2018-06-02 00:00:0 0 2019-05-27 00:00:00 No Mixed hyperlipidemia 20mg QD Take 0.5 tablets (2 0 mg total) by mouth daily. Rishabh Pavon lancets (ACCU-CHEK MULTICLIX LANCET) [facility] 2016-11-07 00:00:00 Yes 1 qd Rishabh Pavon Lisinopril 10 Mg Tablet Lisinopril 10 Mg Tablet Yes 10 Daily [facility] Metformin Hcl 500 Mg Tablet Metformin Hcl 500 Mg Tablet Yes 1000 Twice A Day [facility] Metoprolol Tartrate 25 Mg Tablet Metoprolol Tartrate 25 Mg Tablet Yes 12.5 Twice A Day [facility] Immunizations Ordered Immunization Name Filled Immunization Name Date Status Comments Source FLUCELVAX QUAD PF 2018-12-26 00:00:00 Completed Rishabh Pavon Zoster Vaccine Recombinant 2017-12-24 00:00:00 Completed Rishabh Pavon FLUCELVAX QUAD PF 2017-12-24 00:00:00 Completed Rishabh Pavon Pneumococcal Conjugate 13-Valent 2016-11-02 00:00:00 Compl eted Rishabh Pavon Tdap 2013-11-06 00:00:00 Yasir Pavon Procedures Procedure Date / Time Performed Performing Clinician [facility] e Computed tomography of brain without radiopaque contrast 201 12-19-15 00:00:00 ANA RENEE [facility] Magnetic resonance imaging of brain without contrast 2019-03 00:00:00 ANA RENEE [facility] Plan of Care Planned Activity Planned Date Details Comments Source Future Scheduled Test 2019-11-07 00:00:00 INFLUENZA VACCINE [code = INFLUENZA VACCINE] [facility] Future Scheduled Test 2018-02-23 00:00:00 SHINGLES VACCINES (#2) [code = SHINGLES VACCINES (#2)] [facility] Future Scheduled Test 2016 00:00:00 COLONOSCOPY SCREEN ING [code = COLONOSCOPY SCREENING] [facility] Future Scheduled Test 1976 00:00:00 DIABETES: RETINAL EYE EXAM [code = DIABETES: RETINAL EYE EXAM] [facility] Future Scheduled Test 1976 00:00:00 DIABETIC FOOT EXAM [code = DIABETIC FOOT EXAM] [facility] Future Scheduled Test 1976 00:00:00 URINE MICROALBUMIN [code = URINE MICROALBUMIN] [facility] Encounters Start Date/Time End Date/Time Encounter Type Admission [facility] ID Source 2019-07-06 00:00:00 2019-07-06 00:00:00 Outpatient MARIO ESPINOZA [facility] [id number] [facility] 2019-03-23 15:33:00 2019-03-25 12:03:00 Discharged Inpatient (obs) 1 JULIET TOM WHITMAN [facility] [id number] [facility] Results Test Description Test Time Test Comments Results Result Comments Source Bedside Glucose 2019-03-25 08:05:00 Test Item Bedside Glucose (test code = 38894-2) 100 70-120 M[facility]: [id number] [facility] 2019-03-24 06:47:00* Test Item Value Reference Range Interpretation Comments Free Thyroxine Index (test code = 05164-7) 2.1242 1.4-3.8 [facility]yroxine (T4)2019-03-24 06:47:00* Test Item Value Reference Range Interpretation Comments Thyroxine (T4) (test code = 3026-2) 5.34 4.5-10.9 [facility] PasoTriiodothyronine (T3) [id number] 06:47:00* Test Item Value Reference Range Interpretation Comments Triiodothyronine (T3) Uptake (test code = 3050-2) 39.78 22.5 -37.0 H [facility] PasoThyroid Stimulating Hormone (TSH) 2019-03-24 06:47:00* Test Item Value Reference Range Interpretation Comments Thyroid Stimulating Hormone (TSH) (test code = 16601-4) 2.014 0.350-4.940 [facility] Bpgkc4721-54-99 06:16:00* Test Item Value Reference Range Interpretation Comments Sodium Level (test code = 2951-2) 139 136-145 [facility]Potassium Iqpxi8141-52-98 06:16:00* Test Item Value Reference Range Interpretation Comments Potassium Level (test code = 2823-3) 3.8 3.5-5.1 [facility] PasoChloride Cydhi7949-62-09 06:16:00* Test Item Value Reference Range Interpretation Comments Chloride Level (test code = 2075-0) 108 98-107 H [facility] PasoCarbon Dioxide Pckwb3734-80-73 06:16:00* Test Item Value Reference Range Interpretation Comments Carbon Dioxide Level (test code = 2028-9) 23 22-29 [facility] PasoAnion Psr9362-34-03 06:16:00* Test Item Value Reference Range Interpretation Comments Anion Gap (test code = 39096-3) 11.8 8-16 [facility] PasoBlood Urea Imyizwps9700-75-36 06:16:00* Test Item Value Reference Range Interpretation Comments Blood Urea Nitrogen (test code = 3094-0) 13 7-26 [facility] PasoCreatinine2019-12-17 06:16:00* Test Item Value Reference Range Interpretation Comments Creatinine (test code = 2160-0) 1.02 0.72-1.25 [facility] PasoBUN/Creatinine Bsdeu6789-97-79 06:16:00* Test Item Value Reference Range Interpretation Comments BUN/Creatinine Ratio (test code = 3097-3) 13 6-25 [facility] PasoEstimat Glomerular Filtration Rate 2019-03-24 06:16:00* Test Item Value Reference Range Interpretation Comments Estimat Glomerular Filtration Rate (test code = 126416576) > 60 >60 Ranges were taken from the National Kidney Disease Education Program and the [facility] literature.Reference ranges:60 or greater: Sulaws36-78 ( for 3 consecutive months): Chronic kidney disease 15 or less: Kidney failureFoundation Surgical Hospital of El PasoGlucose Xqhct0363-40-29 06:16:00* Test Item Value Reference Range Interpretation Comments Glucose Level (test code = XJO7170) 119 74-118 H [facility] PasoCalcium Xleck4324-01-00 06:16:00* Test Item Value Reference Range Interpretation Comments Calcium Level (test code = 93315-0) 8.3 8.4-10.2 L [facility] PasoPhosphorus Umems8352-80-49 06:16:00* Test Item Value Reference Range Interpretation Comments Phosphorus Level (test code = SJP3647) 3.5 2.3-4.7 [facility] PasoMagnesium Gfcya7951-42-70 06:16:00* Test Item Value Reference Range Interpretation Comments Magnesium Level (test code = 74164-6) 2.1 1.3-2.1 [facility] PasoHemoglobin A1c Loyoniv1752-89-62 06:05:00 * Test Item Value Reference Range Interpretation Comments Hemoglobin A1c Percent (test code = Hemoglobin A1c Percent) 6.2 4.0-7.0 [facility] PasoWhite Blood Eruja6360-21-60 05:58:00* Test Item Value Reference Range Interpretation Comments White Blood Count (test code = 6690-2) 8.53 4.8-10.8 [facility] PasoRed Blood Pzkhf4017-04-71 05:58:00* Test Item Value Reference Range Interpretation Comments Red Blood Count (test code = 789-8) 5.28 4.3-5.7 [facility] PasoHemoglobin2019-12-17 05:58:00* Test Item Value Reference Range Interpretation Comments Hemoglobin (test code = 81308-8) 11.0 14.0-18.0 L [facility] PasoHematocrit2019-12-17 05:58:00* Test Item Value Reference Range Interpretation Comments Hematocrit (test code = 4544-3) 37.5 38.2-49.6 L [facility] PasoMean Corpuscular Ybpiem1825-82-15 05:58:00* Test Item Value Reference Range Interpretation Comments Mean Corpuscular Volume (test code = 787-2) 71.0 81-99 L [facility] PasoMean Corpuscular Kupjnhihvl0411-73-78 05:58:00* Test Item Value Reference Range Interpretation Comments Mean Corpuscular Hemoglobin (test code = 785-6) 20.8 28-32 L [facility] PasoMean Corpuscular Hemoglobin Concent 2019-03-24 05:58:00* Test Item Value Reference Range Interpretation Comments Mean Corpuscular Hemoglobin Concent (test code = 786-4) 29.3 31-35 L [facility] PasoRed Cell Distribution Ajekv0523-34-64 05:58:00* Test Item Value Reference Range Interpretation Comments Red Cell Distribution Width (test code = 53984-9) 16.9 11.7 -14.4 H [facility] PasoPlatelet Nnnzg6927-62-09 05:58:00* Test Item Value Reference Range Interpretation Comments Platelet Count (test code = 777-3) 282 140-360 [facility] PasoNeutrophils (%) (Auto)2019-03-24 05:58:00 * Test Item Value Reference Range Interpretation Comments Neutrophils (%) (Auto) (test code = 55668-3) 64.9 38.7-80.0 [facility] PasoLymphocytes (%) (Auto)2019-03-24 05:58:00 * Test Item Value Reference Range Interpretation Comments Lymphocytes (%) (Auto) (test code = 736-9) 21.9 18.0-39.1 [facility] PasoMonocytes (%) (Auto)2019-03-24 05:58:00* Test Item Value Reference Range Interpretation Comments Monocytes (%) (Auto) (test code = 5905-5) 8.4 4.4-11.3 [facility] PasoEosinophils (%) (Auto)2019-03-24 05:58:00 * Test Item Value Reference Range Interpretation Comments Eosinophils (%) (Auto) (test code = 713-8) 3.6 0.0-6.0 [facility] PasoBasophils (%) (Auto)2019-03-24 05:58:00* Test Item Value Reference Range Interpretation Comments Basophils (%) (Auto) (test code = 706-2) 0.7 0.0-1.0 [facility] PasoIM GRANULOCYTES %2019-03-24 05:58:00* Test Item Value Reference Range Interpretation Comments IM GRANULOCYTES % (test code = IM GRANULOCYTES %) 0.5 0.0- 1.0 [facility] PasoNeutrophils # (Auto)2019-03-24 05:58:00* Test Item Value Reference Range Interpretation Comments Neutrophils # (Auto) (test code = 751-8) 5.5 2.1-6.9 [facility] PasoLymphocytes # (Auto)2019-03-24 05:58:00* Test Item Value Reference Range Interpretation Comments Lymphocytes # (Auto) (test code = 21958-2) 1.9 1.0-3.2 [facility] PasoMonocytes # (Auto)2019-03-24 05:58:00* Test Item Value Reference Range Interpretation Comments Monocytes # (Auto) (test code = 742-7) 0.7 0.2-0.8 [facility] PasoEosinophils # (Auto)2019-03-24 05:58:00* Test Item Value Reference Range Interpretation Comments Eosinophils # (Auto) (test code = 711-2) 0.3 0.0-0.4 [facility] PasoBasophils # (Auto)2019-03-24 05:58:00* Test Item Value Reference Range Interpretation Comments Basophils # (Auto) (test code = 704-7) 0.1 0.0-0.1 [facility] PasoAbsolute Immature Granulocyte (auto 2019-03-24 05:58:00* Test Item Value Reference Range Interpretation Comments Absolute Immature Granulocyte (auto (christopher t code = Absolute Immature Granulocyte (auto) 0.04 0-0.1 [facility] CJ1845-00-47 18:40:00 [facility] [address] [address] Patient Name: JASMYN MA MR #: [id number] : 1965 Age/Sex: 53/M Req #: [id number] Adm Physician: TOM ELKINS M.D. Ordered by: ANA RENEE MD Report #: [id number] Location: [facility] Room/Bed: [address] [address] Procedure: [id number] MRI/MRI BRAIN WO Exam Date: Exam Time: REPORT STATUS: Signed History: Se izure versus TIA, unresponsive Comparison studies: Head CT on 03/23/2019 Technique: Sagittal T2; axial DWI, FLAIR, MPGR, T1, Coronal FLAIR. In travenous contrast: None Findings: Scalp: Normal in signal . No masses . Bone marrow: Normal in signal intensity. Extra-axial: No masses or f luid collections. Brain sulci: Appropriate for age. Ventricles: Normal in size . No hydrocephalus . Parenchyma: A T2 FLAIR hyperintense focus evelyn cent to the tip of the left frontal horn is nonspecific. Otherwise, no signa l abnormalities. No masses, hemorrhage, acute or chronic cortical ischemic ins ults. Suprasellar region: No abnormalities. Craniocervical junction: No a bnormalities. Patent foramen magnum. No Chiari one malformation. Vessels: Normal flow-voids in the arteries and sinuses. Incidental findings: * Mi ldly enlarged partially empty sella. * The pituitary stalk is slightly deviat ed toward the right. * No gross intra or suprasellar abnormalities but evalu ation of this region is limited on this brain MRI Incidental T2 hyperinte nse mucosal thickening in several ethmoid air cells. IMPRESSION: 1. N o acute abnormalities. 2. No findings to explain patient's history. 3. Foc al ischemic/gliotic changes adjacent to the left frontal horn are nonspecific. Signed by: Dr. Meir Florence M.D. on 03/23/2019 6:48 PM Dicta geremias By: MEIR FLORENCE MD, MD 47 Transcribed By: ANANYA on 03/23/191847 COPY T O: ANA RENEE MD CHEST SINGLE (PORTABLE)2019-03-23 14:47:00 [address] [address] Patient Name: JASMYN MA MR #: [id number] : 1965 Age/Sex: 53/M Req #: [id number] Adm Physician: Ordered by: ANA RENEE MD Report #: [id number] Location: ER Room/Bed: Procedure: [id number] DX/CHEST SINGLE (PORTABLE) Exam Date: 03/23/19 Exa m Time: 1330 REPORT STATUS: Signed EXAMINATION: CHEST SINGLE (PORTABLE) INDICATION: Chest pain CO MPARISON: None FINDINGS: LINES/TUBES:EKG leads overlie the chest. LUNGS:The lungs are well-inflated. No focal consolidation or pulmonary ayah ma. PLEURA:No pleural effusion or pneumothorax. MEDIASTINUM:The cardio mediastinal silhouette appears normal in size and shape. BONES/SOFT TISSUES :No acute osseous injury. ABDOMEN:No free air under the diaphragm. IMPRESSION: No focal pneumonia or pulmonary edema. Signed by: Juan R Burden MD on 03/23/2019 2:47 PM Dictated By: JUAN R BURDEN MD Electronically Sig yaa By: JUAN R BURDEN MD on 03/23/191446 Transcribed By: ANANYA on 03/23/191446 COPY TO: ANA RENEE MD B-Type Natriuretic Peptide 2019-03-23 14:39:00* Test Item Value Reference Range Interpretation Comments B-Type Natriuretic Peptide (test code = 81693-5) 23.6 0-100 [facility] PasoCreatine Kinase [id number] 14:28:00* Test Item Value Reference Range Interpretation Comments Creatine Kinase MB (test code = 62533-2) 2.40 0-5.0 [facility] PasoTroponin [id number] 14:28:00* Test Item Value Reference Range Interpretation Comments Troponin I (test code = BCU8624) 0.016 0-0.300 [facility] PasoTotal Oopylnnsf6611-39-75 14:02:00* Test Item Value Reference Range Interpretation Comments Total Bilirubin (test code = 1975-2) 0.2 0.2-1.2 [facility] PasoAspartate Amino Transf (AST/SGOT) 2019-03-23 14:02:00* Test Item Value Reference Range Interpretation Comments Aspartate Amino Transf (AST/SGOT) (test code = Aspartate Amino Transf (AST/SGOT)) 17 5-34 [facility] PasoAlanine Aminotransferase (ALT/SGPT) 2019-03-23 14:02:00* Test Item Value Reference Range Interpretation Comments Alanine Aminotransferase (ALT/SGPT) (test code = 1742-6) 25 0-55 [facility] PasoTotal Jiapmbd3872-82-40 14:02:00* Test Item Value Reference Range Interpretation Comments Total Protein (test code = 2885-2) 6.7 6.5-8.1 [facility] PasoAlbumin2019-12-16 14:02:00* Test Item Value Reference Range Interpretation Comments Albumin (test code = 1751-7) 3.8 3.5-5.0 [facility]ob[facility] 14:02:00* Test Item Value Reference Range Interpretation Comments Globulin (test code = 73934-5) 2.9 2.3-3.5 [facility]/Globulin [id number] 14:02:00 * Test Item Value Reference Range Interpretation Comments Albumin/Globulin Ratio (test code = 1759-0) 1.3 0.8-2.0 [facility] PasoAlkaline [id number] 14:02:00* Test Item Value Reference Range Interpretation Comments Alkaline Phosphatase (test code = 6768-6) 47 40-150 [facility] PasoCreatine [id number] 14:02:00* Test Item Value Reference Range Interpretation Comments Creatine Kinase (test code = 2157-6) 113 30-200 [facility]Prothrombin [id number] 14:01:00* Test Item Value Reference Range Interpretation Comments Prothrombin Time (test code = 5902-2) 13.1 11.9-14.5 [facility] PasoProthromb Time International Ratio 2019-03-23 14:01:00* Test Item Value Reference Range Interpretation Comments Prothromb Time International Ratio (test code = 6301-6) 0.94 Oral Anticoagulant Therapy INR Values:1. Low Intensity Therapy 1.5 - 2.02 . Moderate Intensity Therapy 2.0 - 3.03. High Intensity Therapy(1) 2.5 - 3. 54. High Intensity Therapy(2) 3.0 - 4.05. Panic Value INR > 5.0 [facility] PasoAct[facility] Partial Thromboplast Time 2019-03-23 14:01:00* Test Item Value Reference Range Interpretation Comments Activated Partial Thromboplast Time (test code = 76203-6) 24.8 23.8-35.5 [facility] PasoCT BRAIN [id number] 13:54:00 [facility] [address] [place] [address] Patient Name: JASMYN MA MR #: [id number] : 1965 Age/Sex: 53/M Req #: [id number] Adm Physician: Ordered by: ANA RENEE MD Report #: [id number] Location: ER Room/Bed: Procedure: 1216-[address]/CT BRAIN WO Exam Date: 03/23/19 Exam Time: 1330 REPORT STATUS: Signed CT BRAIN WO HISTORY: Unresponsive COMPARISON: None. TECHNIQUE: Noncont rast axial scans were obtained from skull base to the vertex. Coronal and sag ittal reconstructions obtained from the axial data. One or more of the follow ing dose reduction techniques were used: Automated exposure control, adjustmen t of the mA and/or kV according to patient size, and/or utilization of iterati ve reconstruction technique. DISCUSSION: Scalp/Skull: Unremarkable. Brain sulci: Appropriate for patient's age. Ventricles: Normal in size and con figuration. No hydrocephalus. Extra-axial spaces: No masses or fluid collecti ons. Parenchyma: No abnormal densities. No mass, hemorrhage, or l arge vascular territory acute infarct. Dural sinuses: No abnormal densitie s. Sellar/Suprasellar region: Intact. Skull base: Intact. Incidental findi ngs: Minimal carotid siphon calcifications. IMPRESSION: No acute intra cranial abnormalities. Signed by: Dr. Omer Smith M.D. on 019 1:57 PM Dictated By: OMER SMITH MD [id number] Transcribed By: ANANYA on 03/23/191356 COPY TO: ANA RENEE MD
--- OUTSIDE RECORDS SUMMARY | 2020-02-22 14:06 | XMS REPORT | Clinical Summary ---
Author Author [employer] [facility] [place] [employer] Address Unknown Phone Unavailable Care Team Providers Care Exceptional Needs Teacher Name Role Phone Gina Coley PCP Allergies No Known Active Allergies Medications End Date Status Medication Sig Dispensed Refills Start Date Active blood sugar diagnostic OneTouch 0 stripIndications: Type 2 Ultra Test diabetes mellitus without strips complication (HCC) Active lancets (ACCU-CHEK 1 qd 100 each 1 01 MULTICLIX LANCET) misc 7 Active blood sugar diagnostic OneTouch 0 strips (ONETOUCH ULTRA Ultra Test TEST) strip test strips strips Active testosterone cypionate Inject into 0 (DEPOTESTOTERONE the shoulder, CYPIONATE) 100 mg/mL thigh, or injection buttocks once a week. Active topiramate (TOPAMAX) 50 0 MG tablet 9 Active anastrozole (ARIMIDEX) 1 once a week. 0 12/20 mg chemo tablet 9 Active TRULICITY 0.75 mg/0.5 mL INJECT 0.75MG 2 Syringe 1 pen injectorIndications: SUBCUTANEOUSL 9 Type 2 diabetes mellitus Y EVERY 7 with other specified DAYS complication, with long-term current use of insulin (HCC) Active ferrous gluconate TAKE 1 TABLET 90 tablet 1 (FERGON) 324 MG BY MOUTH 0 tabletIndications: Iron EVERY DAY IN deficiency anemia, THE MORNING unspecified iron WITH deficiency anemia type BREAKFAST 04/23/2020 Active metoprolol tartrate TAKE 1 TABLET 180 tablet 1 01/06 (LOPRESSOR) 25 mg BY MOUTH 0 tabletIndications: TWICE A DAY Essential hypertension Active atorvastatin (LIPITOR) 40 TAKE 1/2 30 tablet 0 mg tabletIndications: TABLET BY 0 Mixed hyperlipidemia MOUTH EVERY DAY Active metFORMIN (GLUCOPHAGE) TAKE 1 TABLET 60 tablet 0 1 1,000 mg tablet BY MOUTH 0 TWICE A DAY WITH FOOD 05/27/2019 Discontinued atorvastatin (LIPITOR) 40 Take 0.5 90 tablet 1 MG tabletIndications: tablets (20 9 Mixed hyperlipidemia mg total) by mouth daily. 08/18/2019 Discontinued (Reorder) phentermine (ADIPEX-P) TAKE ONE (1) 0 09/25/ 01 37.5 mg tablet TABLET(S) BY 9 MOUTH DAILY. 02/23/2019 lisinopril-hydrochlorothi TAKE 1 TABLET 90 tablet 0 azide BY MOUTH 9 (PRINZIDE,ZESTORETIC) EVERY DAY 20-12.5 mg per tabletIndications: Essential hypertension 07/13/2019 Discontinued ferrous gluconate Take 1 tablet 90 tablet 1 (FERGON) 324 MG (324 mg 9 tabletIndications: Iron total) by deficiency anemia, mouth daily unspecified iron with deficiency anemia type breakfast for 90 days. 03/05/2019 Discontinued (Reorder) metFORMIN (GLUCOPHAGE) TAKE 1 TABLET 60 tablet 1 1 1,000 mg tablet BY MOUTH 9 TWICE A DAY WITH FOOD 03/15/2019 Discontinued (Reorder) metoprolol tartrate TAKE 1 TABLET 60 tablet 0 02/06 (LOPRESSOR) 25 mg BY MOUTH 9 tabletIndications: TWICE A DAY Essential hypertension 03/30/2019 Discontinued metFORMIN (GLUCOPHAGE) TAKE 1 TABLET 60 tablet 1 1 1,000 mg tablet BY MOUTH 9 TWICE A DAY WITH FOOD 04/13/2019 Discontinued metoprolol tartrate TAKE 1 TABLET 60 tablet 0 (LOPRESSOR) 25 mg BY MOUTH 9 tabletIndications: TWICE A DAY Essential hypertension 04/27/2019 Discontinued metFORMIN (GLUCOPHAGE) TAKE 1 TABLET 60 tablet 1 1 1,000 mg tablet BY MOUTH 9 TWICE A DAY WITH FOOD 05/11/2019 Discontinued metoprolol tartrate TAKE 1 TABLET 60 tablet 0 (LOPRESSOR) 25 mg BY MOUTH 0 tabletIndications: TWICE A DAY Essential hypertension 05/27/2019 Discontinued metFORMIN (GLUCOPHAGE) TAKE 1 TABLET 60 tablet 1 0 1,000 mg tablet BY MOUTH 0 TWICE A DAY WITH FOOD 06/08/2019 Discontinued metoprolol tartrate TAKE 1 TABLET 60 tablet 0 /0 (LOPRESSOR) 25 mg BY MOUTH 0 tabletIndications: TWICE A DAY Essential hypertension 02/16/2020 Discontinued (Reorder) atorvastatin (LIPITOR) 40 TAKE / 45 tablet 2 MG tabletIndications: TABLET BY 0 Mixed hyperlipidemia MOUTH EVERY DAY 06/24/2019 Discontinued metFORMIN (GLUCOPHAGE) TAKE 1 TABLET 60 tablet 1 0 1,000 mg tablet BY MOUTH 0 TWICE A DAY WITH FOOD 07/01/2019 Discontinued metoprolol tartrate TAKE 1 TABLET 60 tablet 0 /0 (LOPRESSOR) 25 mg BY MOUTH 0 tabletIndications: TWICE A DAY Essential hypertension 07/21/2019 Discontinued metFORMIN (GLUCOPHAGE) TAKE 1 TABLET 60 tablet 1 0 1,000 mg tablet BY MOUTH 0 TWICE A DAY WITH FOOD 07/28/2019 Discontinued metoprolol tartrate TAKE 1 TABLET 60 tablet 0 06/07 (LOPRESSOR) 25 mg BY MOUTH 0 tabletIndications: TWICE A DAY Essential hypertension Discontinued (Reorder) ferrous gluconate TAKE 1 TABLET 90 tablet 1 (FERGON) 324 MG BY MOUTH 0 tabletIndications: Iron EVERY DAY IN deficiency anemia, THE MORNING unspecified iron WITH deficiency anemia type BREAKFAST 09/09/2019 Discontinued metFORMIN (GLUCOPHAGE) TAKE 1 TABLET 60 tablet 1 0 1,000 mg tablet BY MOUTH 0 TWICE A DAY WITH FOOD Discontinued (Reorder) metoprolol tartrate TAKE 1 TABLET 180 tablet 1 07/08 (LOPRESSOR) 25 mg BY MOUTH 0 tabletIndications: TWICE A DAY Essential hypertension 08/20/2019 Discontinued (Reorder) phentermine (ADIPEX-P) Take 1 tablet 30 tablet 0 0 37.5 mg (37.5 mg 0 tabletIndications: total) by Obesity (BMI 30-39.9) mouth daily for 31 days. 09/20/2019 phentermine (ADIPEX-P) Take 1 tablet 30 tablet 0 0 37.5 mg (37.5 mg 0 tabletIndications: total) by Obesity (BMI 30-39.9) mouth daily for 31 days. 12/05/2019 Discontinued metFORMIN (GLUCOPHAGE) TAKE 1 TABLET 60 tablet 0 0 6/03/202 1,000 mg tablet BY MOUTH 0 TWICE A DAY WITH FOOD Discontinued (Reorder) metFORMIN (GLUCOPHAGE) TAKE 1 TABLET 60 tablet 1 0 1,000 mg tablet BY MOUTH 0 TWICE A DAY WITH FOOD 01/27/2020 Discontinued metFORMIN (GLUCOPHAGE) TAKE 1 TABLET 60 tablet 1 0 1,000 mg tablet BY MOUTH 0 TWICE A DAY WITH FOOD 02/22/2020 Discontinued metFORMIN (GLUCOPHAGE) TAKE 1 TABLET 60 tablet 1 1 1,000 mg tablet BY MOUTH 0 TWICE A DAY WITH FOOD Active Problems Problem Noted Date Screening for colon cancer 06/05/2018 Overview: Added automatically from request for gaurang melendez [id number] Chest pain 11/01/2016 Allergic rhinitis 06/10/2015 Axillary lymphadenopathy 06/10/2015 Chest pain 06/10/2015 Diabetes mellitus 06/10/2015 Hypertension 06/10/2015 Iron deficiency anemia 06/10/2015 Low back pain 06/10/2015 Obesity 06/10/2015 Upper respiratory infection 06/10/2015 Vitamin B deficiency 06/10/2015 Vitamin D deficiency 06/10/2015 Encounters Care Team Description Date Type Specialty Gina Coley PA 02/22/2020 Refill Family Medicine Gina Coley PA Mixed hyperlipidemia 02/16/2020 Refill Family Medicine Gina Coley PA 01/27/2020 Refill Family Medicine Gina Coley PA Essential hypertension 01/24/2020 Refill Family Gina Lewis PA 01/03/2020 Refill Family Medicine Gina Coley, DELIO Iron deficiency anemia, unspecified iron deficiency anemia type 01/03/2020 Refill Family Medicine Gina Coley, DELIO 12/03/2019 Refill Family Medicine Gina Coley PA 09/09/2019 Refill Family Medicine Gina Coley, DELIO Obesity (BMI 30-39.9) 08/20/2019 Orders Only Family Medicine Gina Coley PA 08/20/2019 Orders Only Family Medicine Gina Coley PA Obesity (BMI 30-39.9) (Primary Dx) 08/18/2019 Orders Only Family Medicine Gina Coley PA Essential hypertension 07/28/2019 Refill Family Medicine Gina Coley, PA 07/21/2019 Refill Family Medicine Gina Coley, DELIO Iron deficiency anemia, unspecified iron deficiency anemia type 07/10/2019 Refill Family Medicine Gina Coley, DELIO Type 2 diabetes mellitus without complic ation, without long-term current use of insulin (HCC) (Primary Dx) 07/06/2019 Telemedicine Family Gina Lewis, DELIO Essential hypertension 07/01/2019 Refill Family Medicine Gina Coley, PA 06/20/2019 Refill Family Medicine Gina Coley, DELIO Essential hypertension 06/05/2019 Refill Family Medicine Gina Coley, DELIO Mixed hyperlipidemia 05/23/2019 Refill Family Medicine Gina Coley, DELIO Essential hypertension 05/10/2019 Refill Family Medicine Gina Coley, PA 04/26/2019 Refill Family Medicine Gina Coley, DELIO Essential hypertension 04/10/2019 Refill Family Medicine Gina Coley, PA 03/29/2019 Refill Family Medicine Nery Montgomery RN 03/23/2019 Telephone Access Nery Montgomery RN 03/23/2019 Nurse Triage Access Gina Coley, DELIO Essential hypertension 03/15/2019 Refill Family Medicine Gina Coley, PA 03/05/2019 Refill Family Medicine after 02/21/2019 Immunizations Name Administration Dates Next Due FLUCELVAX QUAD PF 12/26/2018, 12/24/2017 Pneumococcal Conjugate 11/02/2016 13-Valent Tdap 11/06/2013 Zoster Vaccine 12/24/2017 Recombinant Surgical History Surgery Date Site/Laterality Comments KNEE SURGERY 04/08/1984 - 04/07/1985 FOOT SURGERY 04/08/1979 - both ankles 04/07/1980 KNEE SURGERY ANKLE SURGERY CARDIAC CATHETERIZATION 11/02/2016 N/A Proced ure: Cv left heart cath w lv gram cors; Surgeon: Musa Flores MD; Location: [facility] Data Entry Coordinator Invasive Location; Service: Cardio vascular; Laterality: N/A; Medical devices from this surgery are i n the Implants section. BARIATRIC SURGERY 04/08/1997 - 04/07/1998 COLONOSCOPY 07/04/2018 Divert in the sigmi od and descending colon/ int hemorrhoids/ NO BX COLLECTED COLONOSCOPY 07/04/2018 N/A Procedure: COLO NOSCOPY; Surgeon: Brayden Child MD; Location: [facility]; Service : Gastroenterology; Laterality: N/A; diverticulosis,hemorrhoids Medical History Medical History Date Comments Diabetes mellitus (HCC) Hypertension Sleep apnea, obstructive wears CPAP Hyperlipidemia Obesity Iron deficiency anemia Diverticulosis Hemorrhoids Family History Medical History Relation Name Comments Diabetes Father Heart disease Father Hypertension Father Diabetes Mother Relation Name Status Comments Father Mother Alive Social History Date Tobacco Use Types Packs/Day Years Used Never Smoker Smokeless Tobacco: Never Used Tobacco Cessation: Counseling Given: No Drinks/Week oz/Week Comments Alcohol Use maybe once a month Yes Alcohol Habits Answer Date Recorded How often do you have a drink containing alcohol? Monthly or less 01/05/2019 How many drinks containing alcohol do you have on No t asked a typical day when you are drinking? How often do you have six or more drinks on one Not asked occasion? Sex Assigned at Date Recorded Not on file Last Filed Vital Signs Not on file Plan of Treatment Care Team Description Date Type Specialty Gina Coley, [place] [address] [place] [address] [phone] 02/29/2020 Office Visit Family Medicine Health Maintenance Due Date Last Done Comments DIABETES: RETINAL EYE 1976 EXAM DIABETIC FOOT EXAM 1976 URINE MICROALBUMIN 1976 COLONOSCOPY SCREENING 2016 SHINGLES VACCINES (#2) 02/23/2018 12/24/2017 INFLUENZA VACCINE 11/07/2019 12/26/2018, 12/24/2017 Implants Device Identifier Shelf Expiration Date Model / Serial / L ot Implanted Type Area [facility] er 10/05/2018 [id number] / / [id number] Device Vasclr Clsr Baln Cath 10ml Cardiovasc N/A: N/A CARDINAL Lkng Syr [id number] Implants Implanted: 11/02/2016 at [facility] (Quantity not on file) Results Not on fileafter 02/21/2019 Insurance Type Payer Benefit Subscriber ID Effective Phone Address Plan / Dates Group HMO [employer] OPEN [id number] 2016-P ACCESS/NET resent WORK Advance Directives For more information, please contact: [phone] 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
[2020-02-22 14:07] LABS: BASOPHILS # (AUTO) 0.1 (0.0-0.1); BASOPHILS % 0.7 % (0.0-1.0); EOSINOPHILS # (AUTO) 0.1 (0.0-0.4); EOSINOPHILS % 1.4 % (0.0-6.0); HEMATOCRIT 39.4 % (38.2-49.6); HEMOGLOBIN 13.4 g/dL (14.0-18.0); LYMPHOCYTES # (AUTO) 1.3 (1.0-3.2); LYMPHOCYTES % 18.4 % (18.0-39.1); MEAN CORPUSCULAR VOLUME 79.4 fL (81-99); MONOCYTES # (AUTO) 0.5 (0.2-0.8); MONOCYTES % 6.6 % (4.4-11.3); NEUTROPHILS # (AUTO) 5.3 (2.1-6.9); NEUTROPHILS % 72.6 % (38.7-80.0); PLATELET COUNT 234 x10e3/uL (140-360); RED BLOOD COUNT 4.96 x10e6/uL (4.3-5.7); RED CELL DISTRIBUTION WIDTH 15.2 % (11.7-14.4)
[2020-02-22 14:14] LABS: INR 0.95; PROTHROMBIN TIME 13.2 seconds (11.9-14.5)
[2020-02-22 14:25] LABS: ALANINE AMINOTRANSFERASE 30 IU/L (0-55); ALBUMIN 4.2 g/dL (3.5-5.0); ALBUMIN/GLOBULIN RATIO 1.6 (0.8-2.0); ALKALINE PHOSPHATASE 54 IU/L (40-150); ANION GAP 10.7 mmol/L (8-16); BLOOD UREA NITROGEN 13 mg/dL (7-26); BUN/CREATININE RATIO 18 (6-25); CALCIUM 8.6 mg/dL (8.4-10.2); CARBON DIOXIDE 24 mmol/L (22-29); CHLORIDE 108 mmol/L (98-107); CREATINE KINASE 110 IU/L (30-200); CREATININE, SERUM 0.73 mg/dL (0.72-1.25); EST GLOMERULAR FILTRATION RATE > 60 ML/MIN (60-); GLUCOSE 89 mg/dL (74-118); POTASSIUM 3.7 mmol/L (3.5-5.1); SODIUM 139 mmol/L (136-145)
[2020-02-22] MEDS ORDERED: ONDANSETRON HCL INJ 2MG/ML 2ML 2 MG/ML VIAL IV PRN (14:45)
[2020-02-22] MEDS ORDERED: MORPHINE SULFATE 2 MG/ML SYR 1ML IV PRN (14:45)
--- OUTSIDE RECORDS SUMMARY | 2020-02-22 14:49 | XMS REPORT | Clinical Summary ---
Author Author [employer] [employer] [facility] [place] [employer] Address Unknown Phone Unavailable Care Team Providers Care Compound Specialist Name Role Phone Gina Coley PCP Allergies [...] Added automatically from request for gaurang melendez [id number] Chest pain 11/01/2016 Allergic rhinitis 06/10/2015 Axillary [...] gram cors; Surgeon: Musa Flores MD; Location: [facility] Shingle Packer Invasive Location; Service: Cardio vascular; Laterality: N/A; Medical devices from this surgery are i n the Implants section. BARIATRIC SURGERY 04/08/1997 - 04/07/1998 COLONOSCOPY 07/04/2018 Divert in the sigmi od and descending colon/ int hemorrhoids/ NO BX COLLECTED COLONOSCOPY 07/04/2018 N/A Procedure: COLO NOSCOPY; Surgeon: Brayden Child MD; Location: [facility]; Service : Gastroenterology; Laterality: N/A; diverticulosis,hemorrhoids [...] DELIO [address] [place] [address] [phone] 02/29/2020 Office Visit Family Medicine Health Maintenance Due Date Last Done Comments DIABETES: RETINAL EYE 1976 EXAM DIABETIC FOOT EXAM 1976 URINE MICROALBUMIN 1976 COLONOSCOPY SCREENING 2016 SHINGLES VACCINES (#2) 02/23/2018 12/24/2017 INFLUENZA VACCINE 11/07/2019 12/26/2018, 12/24/2017 Implants Device Identifier Shelf Expiration Date Model / Serial / L ot Implanted Type Area [facility] er 10/05/2018 [id number] / / [id number] Device Vasclr Clsr Baln Cath 10ml Cardiovasc N/A: N/A CARDINAL Lkng Syr 6fr 7fr [facility] [id number] Implants Implanted: 11/02/2016 at [facility] (Quantity not on file) Results Not on fileafter 02/21/2019 Insurance Type Payer Benefit Subscriber ID Effective Phone Address Plan / Dates Group HMO [employer] OPEN [id number] 2016-P ACCESS/NET resent WORK Advance Directives For more information, please contact: [phone] 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
--- OUTSIDE RECORDS SUMMARY | 2020-02-22 14:49 | XMS REPORT | Continuity of Care Document ---
Author Author [facility] t Organization [facility] Address 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 Name Role Phone NONSTAFF PCP Unavailable Florin Eid Attphys William ELKINS Attphys Unavailable Milly Montgomery RN Attphys Unavailable William ELKINS Admphys Unavailable Payers Payer Name Policy Type Policy Number Effective Date Expiration Date Alireza humphrey VENU OPEN [id number] 2016-PresentO [id number] 2016 00:00:00 Rishabh Pavon Cigvandana o [id number] 2016 00:00:00 [facility] Problems Condition Name Condition Details Condition Category Status Onset Date Resolution Date Last Treatment Date Treating Clinician Comments Source Screening for colon cancer Screening for colon cancer Disease Active 2018-06-05 00:00:00 Overview: Added automaticall y from request for surgery [id number] Rishabh Pavon Chest pain Chest pain Disease Active 2016-11-01 00:00:00 Rishabh Pavon Allergic rhinitis Allergic rhinitis Disease Active 2015-06-10 00:00:00 Rishabh Pavon Axillary lymphadenopathy Axillary lymphadenopathy Disease Acti ve 2015-06-10 00:00:[address] Chest pain Chest pain Disease Active 2015-06-10 00:00:00 Rishabh Pavon Diabetes mellitus Diabetes mellitus Disease Active 2015-06-10 00:00:00 Rishabh Paovn Hypertension Hypertension Disease Active 2015-06-10 00:00:00 Rishabh [...] Pavon Absence epilepsy Absence epilepsy Problem Active [facility] Transient ischemic attack TIA (transient ischemic attack) Problem Active [facility] Allergies, Adverse Reactions, Alerts This patient has no known allergies or adverse reactions. Family History Family Member Diagnosis Comments Start Date Stop Date Source Natural father [facility] father Heart disease Rishabh Pavon Natural father Hypertension Rishabh Pavon Natural mother [facility] Social History Social Habit Start Date Stop [...] mouth daily for 31 days. Rishabh Pavon phentermine (ADIPEX-P) 37.5 mg tablet 2019-08-18 00:00 [...] Yes Tom Whitman M.d. 81 Daily [facility] Levetiracetam (Keppra) 500 Mg Tablet Levetiracetam (Keppra) 500 Mg Tablet 2019-03-25 00:00:00 Yes Tom Whitman M.d. 500 T wice A Day [facility] metoprolol tartrate (LOPRESSOR) 25 mg tablet 12-18-08 [...] daily. Rishabh Pavon lancets (ACCU-CHEK MULTICLIX LANCET) [facility] 2016-11-07 00:00:00 Yes 1 qd Rishabh Pavon Lisinopril 10 Mg Tablet Lisinopril 10 Mg Tablet Yes 10 Daily [facility] Metformin Hcl 500 Mg Tablet Metformin Hcl 500 Mg Tablet Yes 1000 Twice A Day [facility] Metoprolol Tartrate 25 Mg Tablet Metoprolol Tartrate 25 Mg Tablet Yes 12.5 Twice A Day [facility] Immunizations Ordered Immunization Name Filled Immunization Name Date Status Comments Source FLUCELVAX QUAD PF 2018-12-26 00:00:00 Completed Rishabh Pavon Zoster Vaccine Recombinant 2017-12-24 00:00:00 Completed Rishabh Pavon FLUCELVAX QUAD PF 2017-12-24 00:00:00 Completed Rishabh Pavon Pneumococcal Conjugate 13-Valent 2016-11-02 00:00:00 Compl eted Rishabh Pavon Tdap 2013-11-06 00:00:00 Yasir Pavon Procedures Procedure Date / Time Performed Performing Clinician [facility] Computed tomography of brain without radiopaque contrast 201 12-19-15 00:00:00 ANA RENEE [facility] Magnetic resonance imaging of brain without contrast 2019-03 00:00:00 ANA RENEE [facility] Plan of Care Planned Activity Planned Date Details Comments Source Future Scheduled Test 2019-11-07 00:00:00 INFLUENZA VACCINE [code = INFLUENZA VACCINE] [facility] Future Scheduled Test 2018-02-23 00:00:00 SHINGLES VACCINES (#2) [code = SHINGLES VACCINES (#2)] [facility] Future Scheduled Test 2016 00:00:00 COLONOSCOPY SCREEN ING [code = COLONOSCOPY SCREENING] [facility] Future Scheduled Test 1976 00:00:00 DIABETES: RETINAL EYE EXAM [code = DIABETES: RETINAL EYE EXAM] [facility] Future Scheduled Test 1976 00:00:00 DIABETIC FOOT EXAM [code = DIABETIC FOOT EXAM] [facility] Future Scheduled Test 1976 00:00:00 URINE MICROALBUMIN [code = URINE MICROALBUMIN] [facility] Encounters Start Date/Time End Date/Time En[facility] Type [facility] ID Source 2019-07-06 00:00:00 2019-07-06 00:00:00 Outpatient MARIO ESPINOZA [facility] [id number] [facility] 2019-03-23 15:33:00 2019-03-25 12:03:00 Discharged Inpatient (obs) 1 JULIET TOM WHITMAN [facility] [id number] [facility] Results Test Description Test Time Test Comments Results Result Comments Source Bedside Glucose 2019-03-25 08:05:00 Test Item Bedside Glucose (test code = 76275-9) 100 70-120 Meter [id number] 2019-03-24 06:47:00* Test Item Value Reference Range Interpretation Comments Free Thyroxine Index (test code = 63905-5) 2.1242 1.4-3.8 [facility]Thyroxine (T4)2019-03-24 06:47:00* Test Item Value Reference Range Interpretation Comments Thyroxine (T4) (test code = 3026-2) 5.34 4.5-10.9 [facility] CampusTriiodothyronine (T3) [id number] 06:47:00* Test Item Value Reference Range Interpretation Comments Triiodothyronine (T3) Uptake (test code = 3050-2) 39.78 22.5 -37.0 H [facility] CampusThyroid Stimulating Hormone (TSH) 2019-03-24 06:47:00* Test Item Value Reference Range Interpretation Comments Thyroid Stimulating Hormone (TSH) (test code = 10538-5) 2.014 0.350-4.940 [facility] Nxnpw6078-04-16 06:16:00* Test Item Value Reference Range Interpretation Comments Sodium Level (test code = 2951-2) 139 136-145 [facility] CampusPotassium Gtquj2145-96-89 06:16:00* Test Item Value Reference Range Interpretation Comments Potassium Level (test code = 2823-3) 3.8 3.5-5.1 [facility] CampusChloride Tuwav6667-21-78 06:16:00* Test Item Value Reference Range Interpretation Comments Chloride Level (test code = 2075-0) 108 98-107 H [facility] CampusCarbon Dioxide Rsdvc1547-17-13 06:16:00* Test Item Value Reference Range Interpretation Comments Carbon Dioxide Level (test code = 2028-9) 23 22-29 [facility] CampusAnion [id number] 06:16:00* Test Item Value Reference Range Interpretation Comments Anion Gap (test code = 27098-4) 11.8 8-16 [facility] CampusBlood Urea Ukcrgono4979-21-62 06:16:00* Test Item Value Reference Range Interpretation Comments Blood Urea Nitrogen (test code = 3094-0) 13 7-26 [facility] CampusCreatinine2019-12-17 06:16:00* Test Item Value Reference Range Interpretation Comments Creatinine (test code = 2160-0) 1.02 0.72-1.25 [facility] CampusBUN/Creatinine Ecvue4049-36-44 06:16:00* Test Item Value Reference Range Interpretation Comments BUN/Creatinine Ratio (test code = 3097-3) 13 6-25 [facility] CampusEstimat Glomerular Filtration Rate 2019-03-24 06:16:00* Test Item Value Reference Range Interpretation Comments Estimat Glomerular Filtration Rate (test code = 215100205) > 60 >60 Ranges were taken from the National Kidney Disease Education Program and the [facility] [employer] literature.Reference ranges:60 or greater: Ybcfbq91-76 ( for 3 consecutive months): Chronic kidney disease 15 or less: Kidney failureNorth [facility] CampusGlucose Blpzm2916-02-21 06:16:00* Test Item Value Reference Range Interpretation Comments Glucose Level (test code = HRU5764) 119 74-118 H [facility] CampusCalcium Lwfqt6793-82-08 06:16:00* Test Item Value Reference Range Interpretation Comments Calcium Level (test code = 58868-0) 8.3 8.4-10.2 L [facility] CampusPhosphorus Otpjd8137-65-11 06:16:00* Test Item Value Reference Range Interpretation Comments Phosphorus Level (test code = YUY6922) 3.5 2.3-4.7 [facility] CampusMagnesium Rlwey0323-60-87 06:16:00* Test Item Value Reference Range Interpretation Comments Magnesium Level (test code = 71104-0) 2.1 1.3-2.1 [facility] CampusHemoglobin A1c Fzvmdoo0201-69-63 06:05:00 * Test Item Value Reference Range Interpretation Comments Hemoglobin A1c Percent (test code = Hemoglobin A1c Percent) 6.2 4.0-7.0 [facility] CampusWhite Blood Cvaht8873-89-68 05:58:00* Test Item Value Reference Range Interpretation Comments White Blood Count (test code = 6690-2) 8.53 4.8-10.8 [facility] CampusRed Blood Gouzg2530-19-64 05:58:00* Test Item Value Reference Range Interpretation Comments Red Blood Count (test code = 789-8) 5.28 4.3-5.7 [facility] CampusHemoglobin2019-12-17 05:58:00* Test Item Value Reference Range Interpretation Comments Hemoglobin (test code = 83376-8) 11.0 14.0-18.0 L [facility] CampusHematocrit2019-12-17 05:58:00* Test Item Value Reference Range Interpretation Comments Hematocrit (test code = 4544-3) 37.5 38.2-49.6 L [facility] CampusMean Corpuscular Cnorlo4088-58-36 05:58:00* Test Item Value Reference Range Interpretation Comments Mean Corpuscular Volume (test code = 787-2) 71.0 81-99 L [facility] CampusMean Corpuscular Zyobrsmdws6409-83-95 05:58:00* Test Item Value Reference Range Interpretation Comments Mean Corpuscular Hemoglobin (test code = 785-6) 20.8 28-32 L [facility] CampusMean Corpuscular Hemoglobin Concent 2019-03-24 05:58:00* Test Item Value Reference Range Interpretation Comments Mean Corpuscular Hemoglobin Concent (test code = 786-4) 29.3 31-35 L [facility] CampusRed Cell Distribution Tyqda6747-47-91 05:58:00* Test Item Value Reference Range Interpretation Comments Red Cell Distribution Width (test code = 24688-5) 16.9 11.7 -14.4 H [facility] CampusPlatelet Wgtdn5673-65-88 05:58:00* Test Item Value Reference Range Interpretation Comments Platelet Count (test code = 777-3) 282 140-360 [facility] CampusNeutrophils (%) (Auto)2019-03-24 05:58:00 * Test Item Value Reference Range Interpretation Comments Neutrophils (%) (Auto) (test code = 70750-8) 64.9 38.7-80.0 [facility] CampusLymphocytes (%) (Auto)2019-03-24 05:58:00 * Test Item Value Reference Range Interpretation Comments Lymphocytes (%) (Auto) (test code = 736-9) 21.9 18.0-39.1 [facility] CampusMonocytes (%) (Auto)2019-03-24 05:58:00* Test Item Value Reference Range Interpretation Comments Monocytes (%) (Auto) (test code = 5905-5) 8.4 4.4-11.3 [facility] CampusEosinophils (%) (Auto)2019-03-24 05:58:00 * Test Item Value Reference Range Interpretation Comments Eosinophils (%) (Auto) (test code = 713-8) 3.6 0.0-6.0 [facility] CampusBasophils (%) (Auto)2019-03-24 05:58:00* Test Item Value Reference Range Interpretation Comments Basophils (%) (Auto) (test code = 706-2) 0.7 0.0-1.0 [facility] CampusIM GRANULOCYTES %2019-03-24 05:58:00* Test Item Value Reference Range Interpretation Comments IM GRANULOCYTES % (test code = IM GRANULOCYTES %) 0.5 0.0- 1.0 [facility] CampusNeutrophils # (Auto)2019-03-24 05:58:00* Test Item Value Reference Range Interpretation Comments Neutrophils # (Auto) (test code = 751-8) 5.5 2.1-6.9 [facility] CampusLymphocytes # (Auto)2019-03-24 05:58:00* Test Item Value Reference Range Interpretation Comments Lymphocytes # (Auto) (test code = 61378-1) 1.9 1.0-3.2 [facility] CampusMonocytes # (Auto)2019-03-24 05:58:00* Test Item Value Reference Range Interpretation Comments Monocytes # (Auto) (test code = 742-7) 0.7 0.2-0.8 [facility] CampusEosinophils # (Auto)2019-03-24 05:58:00* Test Item Value Reference Range Interpretation Comments Eosinophils # (Auto) (test code = 711-2) 0.3 0.0-0.4 [facility] CampusBasophils # (Auto)2019-03-24 05:58:00* Test Item Value Reference Range Interpretation Comments Basophils # (Auto) (test code = 704-7) 0.1 0.0-0.1 [facility] CampusAbsolute Immature Granulocyte (auto 2019-03-24 05:58:00* Test Item Value Reference Range Interpretation Comments Absolute Immature Granulocyte (auto (christopher t code = Absolute Immature Granulocyte (auto) 0.04 0-0.1 [facility] CenterMRI [facility] [id number] 18:40:00 [facility] [address] [address] Patient Name: JASMYN MA MR #: [id number] : 1965 Age/Sex: 53/M Req #: [id number] Adm Physician: TOM ELKINS M.D. Ordered by: ANA RENEE MD Report #: [id number] Location: [facility] Room/Bed: [place] [address] Procedure: [id number] MRI/MRI BRAIN WO Exam Date: Exam Time: [...] ANA RENEE MD CHEST SINGLE (PORTABLE)2019-03-23 14:47:[address] [address] Patient Name: JASMYN MA MR #: [id number] : 1965 Age/Sex: 53/M Req #: [id number] Adm Physician: Ordered by: ANA RENEE MD Report #: [id number] Location: ER Room/Bed: Procedure: 1216-005 8 DX/CHEST [...] Comments B-Type Natriuretic Peptide (test code = 17399-0) 23.6 0-100 [facility] CampusCreatine Kinase [id number] 14:28:00* Test Item Value Reference Range Interpretation Comments Creatine Kinase MB (test code = 53777-9) 2.40 0-5.0 [facility] CampusTroponin [id number] 14:28:00* Test Item Value Reference Range Interpretation Comments Troponin I (test code = NNN7655) 0.016 0-0.300 [facility] CampusTotal Zazmmabaw4593-73-22 14:02:00* Test Item Value Reference Range Interpretation Comments Total Bilirubin (test code = 1975-2) 0.2 0.2-1.2 [facility] CampusAspartate Amino Transf (AST/SGOT) 2019-03-23 14:02:00* Test Item Value Reference Range Interpretation Comments Aspartate Amino Transf (AST/SGOT) (test code = Aspartate Amino Transf (AST/SGOT)) 17 5-34 [facility] CampusAlanine Aminotransferase (ALT/SGPT) 2019-03-23 14:02:00* Test Item Value Reference Range Interpretation Comments Alanine Aminotransferase (ALT/SGPT) (test code = 1742-6) 25 0-55 [facility] CampusTotal Ubgizea2669-79-75 14:02:00* Test Item Value Reference Range Interpretation Comments Total Protein (test code = 2885-2) 6.7 6.5-8.1 [facility] CampusAlbumin2019-12-16 14:02:00* Test Item Value Reference Range Interpretation Comments Albumin (test code = 1751-7) 3.8 3.5-5.0 [facility] CampusGlobulin2019-12-16 14:02:00* Test Item Value Reference Range Interpretation Comments Globulin (test code = 21467-0) 2.9 2.3-3.5 [facility] CampusAlbumin/Globulin Tzdhz2471-73-01 14:02:00 * Test Item Value Reference Range Interpretation Comments Albumin/Globulin Ratio (test code = 1759-0) 1.3 0.8-2.0 [facility] CampusAlkaline Fzxxuicgfzo4868-58-46 14:02:00* Test Item Value Reference Range Interpretation Comments Alkaline Phosphatase (test code = 6768-6) 47 40-150 [facility] CampusCreatine Hhufbq0229-69-75 14:02:00* Test Item Value Reference Range Interpretation Comments Creatine Kinase (test code = 2157-6) 113 30-200 [facility] CampusProthrombin Azgx7083-64-12 14:01:00* Test Item Value Reference Range Interpretation Comments Prothrombin Time (test code = 5902-2) 13.1 11.9-14.5 [facility] CampusProthromb Time International Ratio 2019-03-23 14:01:00* Test Item Value Reference Range Interpretation Comments Prothromb Time International Ratio (test code = 6301-6) 0.94 Oral Anticoagulant Therapy INR Values:1. Low Intensity Therapy 1.5 - 2.02 . Moderate Intensity Therapy 2.0 - 3.03. High Intensity Therapy(1) 2.5 - 3. 54. High Intensity Therapy(2) 3.0 - 4.05. Panic Value INR > 5.0 [facility] CampusActivated Partial Thromboplast Time 2019-03-23 14:01:00* Test Item Value Reference Range Interpretation Comments Activated Partial Thromboplast Time (test code = 42992-6) 24.8 23.8-35.5 [facility] CampusCT BRAIN [id number] 13:54:00 [facility] [address] [place] [address] Patient Name: JASMYN MA MR #: [id number] : 1965 Age/Sex: 53/M Req #: [id number] Adm Physician: Ordered by: ANA RENEE MD Report #: [id number] Location: ER Room/Bed: Procedure: [id number]/CT [...] 1:57 PM Dictated By: OMER SMITH MD 053 Transcribed By: ANANYA on 03/23/191356 COPY TO: ANA RENEE MD
--- NOTE | 2020-02-22 15:30 | Diagnostic Imaging Report ---
TECHNIQUE: Frontal view of the chest. INDICATION: ^CP ^[id number] ^1415 COMPARISON: 03/23/2019 DISCUSSION: Limited evaluation due to portable technique. Lines and hardware: Overlying EKG leads are noted. Heart and mediastinum: Stable. Lungs and pleura: No focal airspace consolidation. No pleural effusion. No pneumothorax. Low lung volumes are noted. Soft tissues and bones: No acute abnormality. IMPRESSION: Negative for acute intrathoracic process. Signed by: Vipin Sosa MD on 02/22/2020 3:26 PM
[2020-02-22] MEDS ORDERED: POLYETHYLENE GLYCOL 3350 17 GM PACK PO PRN (17:15)
[2020-02-22] MEDS ORDERED: HYDRALAZINE HCL 20 MG/ML VIAL IV PRN (17:15)
[2020-02-22 18:18] VITALS: BP 149/93
[2020-02-22 18:33] VITALS: BP 149/93
--- NOTE | 2020-02-22 19:30 | NUR ---
Patient received sitting up in bed. AAO x 4. Patient had no complaints of pain. Respirations even and non-labored. Safety measures implemented. Medication reconciliation done. Patient instructed to call for assistance when needed. call light within reach.
[2020-02-22] MEDS ORDERED: ATORVASTATIN CA10 MG PO (19:31)
[2020-02-22 20:00] VITALS: BP 130/85
[2020-02-22] MEDS ORDERED: DEXTROSE 50% SYRINGE 50 ML IV PRN (20:45)
--- NOTE | 2020-02-22 20:45 | NUR ---
Received orders for low dose regular insulin and Nitrostat 0.4 mg SL PRN from Tima Young (EDELMIRA).
[2020-02-22 20:57] LABS: CREATINE KINASE MB 2.3 ng/mL (0-5.0)
[2020-02-22] MEDS ORDERED: TEMAZEPAM 15 MG CAP PO PRN (21:00)
[2020-02-22] MEDS: INSULIN REGULAR, HUMAN 100 UNIT/1 ML 3ML VIAL SQ SCH (21:00)
[2020-02-22 21:25] VITALS: BP 130/85
[2020-02-22] MEDS ORDERED: NITROGLYCERIN 0.4 MG SUBL SL PRN (23:15)
[2020-02-23] VITALS: BP 136/83
[2020-02-23] MEDS ORDERED: ACETAMINOPHEN 325 MG TAB PO PRN (02:00)
[2020-02-23 04:00] VITALS: BP 132/85
[2020-02-23 05:07] LABS: BASOPHILS # (AUTO) 0.1 (0.0-0.1); BASOPHILS % 0.8 % (0.0-1.0); EOSINOPHILS # (AUTO) 0.2 (0.0-0.4); EOSINOPHILS % 2.7 % (0.0-6.0); HEMATOCRIT 38.9 % (38.2-49.6); HEMOGLOBIN 13.3 g/dL (14.0-18.0); LYMPHOCYTES # (AUTO) 1.6 (1.0-3.2); LYMPHOCYTES % 25.4 % (18.0-39.1); MEAN CORPUSCULAR HEMOGLOBIN 27.7 pg (28-32); MEAN CORPUSCULAR HGB CONC 34.2 g/dL (31-35); MEAN CORPUSCULAR VOLUME 80.9 fL (81-99); MONOCYTES # (AUTO) 0.5 (0.2-0.8); MONOCYTES % 7.4 % (4.4-11.3); NEUTROPHILS % 63.4 % (38.7-80.0); PLATELET COUNT 214 x10e3/uL (140-360); RED BLOOD COUNT 4.81 x10e6/uL (4.3-5.7)
[2020-02-23 05:25] LABS: ALANINE AMINOTRANSFERASE 26 IU/L (0-55); ALBUMIN 3.5 g/dL (3.5-5.0); ALBUMIN/GLOBULIN RATIO 1.4 (0.8-2.0); ALKALINE PHOSPHATASE 49 IU/L (40-150); ANION GAP 10.9 mmol/L (8-16); BLOOD UREA NITROGEN 14 mg/dL (7-26); BUN/CREATININE RATIO 19 (6-25); CALCIUM 8.3 mg/dL (8.4-10.2); CARBON DIOXIDE 26 mmol/L (22-29); CHLORIDE 107 mmol/L (98-107); CHOL/HDL RATIO 2.7 (3.9-4.7); CHOLESTEROL 89 MD/DL (0-199); CREATININE, SERUM 0.73 mg/dL (0.72-1.25); EST GLOMERULAR FILTRATION RATE > 60 ML/MIN (60-); GLUCOSE 94 mg/dL (74-118); HDL CHOLESTEROL 33 MG/DL (40-60); LDL CHOLESTEROL 40 MG/DL (60-130); POTASSIUM 3.9 mmol/L (3.5-5.1); SODIUM 140 mmol/L (136-145); TRIGLYCERIDES 79 MG/DL (0-149)
[2020-02-23 05:48] LABS: CREATINE KINASE 67 IU/L (30-200)
--- NOTE | 2020-02-23 07:00 | NUR ---
Patient resting comfortably. Walking rounds done. Shift report given to oncoming nurse regarding patient's status.
[2020-02-23] MEDS: INSULIN REGULAR, HUMAN 100 UNIT/1 ML 3ML VIAL SQ SCH ×2 (07:30→11:30)
[2020-02-23 07:38] VITALS: BP 132/84
[2020-02-23 08:17] VITALS: BP 132/84
[2020-02-23] MEDS ORDERED: ASPIRIN 81 MG CHEW TAB PO SCH (09:00)
[2020-02-23] MEDS ORDERED: ASPIRIN 81 MG ENTERIC COATED PO SCH (09:00)
[2020-02-23] MEDS ORDERED: METOPROLOL TARTRATE 25 MG TAB PO SCH (09:00)
[2020-02-23] MEDS ORDERED: METFORMIN HCL 500 MG TAB PO SCH (09:00)
[2020-02-23] MEDS ORDERED: DOCUSATE SODIUM 100 MG CAP PO SCH (09:00)
[2020-02-23] MEDS ORDERED: LISINOPRIL 10 MG TAB PO SCH (09:00)
[2020-02-23] MEDS ORDERED: FAMOTIDINE 20 MG/2 ML VIAL IV SCH (09:00)
[2020-02-23] MEDS ORDERED: FAMOTIDINE20 MG PO (11:36)
[2020-02-23 11:47] VITALS: BP 138/95
[2020-02-23] MEDS ORDERED: ATORVASTATIN 10 MG TAB PO SCH (21:00)
--- NOTE | 2020-02-25 03:36 | Discharge Summary ---
ADMISSION DIAGNOSES: Chest pain, hypertension, type 2 diabetes, hyperlipidemia, obesity with a BMI of 33.5. DISCHARGE DIAGNOSES: Chest pain, hypertension, type 2 diabetes, hyperlipidemia, obesity with a BMI of 33.5 and rule out ACS. HISTORY: Type 2 diabetes, hypertension, hyperlipidemia, and obstructive sleep apnea with BiPAP at night. SURGICAL HISTORY: Left knee surgery. FAMILY HISTORY: The patient's dad had diabetes. The patient's grandmother and grandfather had cancer. SOCIAL HISTORY: Occasional alcohol use. HOSPITAL COURSE: A 54-year-old male admits with complaints of substernal chest ache that radiated to his back. He has had symptoms for about six days. He has intermittent dizziness, but denies diaphoresis. Stress worsens the symptoms. He admits to losing about 10-pound recently due to poor appetite and nausea with food. 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 He admits to being under a lot of stress due to moving and he is closing on his house today. On admission, troponins were negative x3. Echo showed an EF of 60%. Chest x-ray was negative. BNP was within normal limits as well as TSH. The patient was given a dose of aspirin and he was given a prescription for Pepcid. He is adamant about discharging today since he is closing on his house and he already has an outpatient stress test scheduled. The patient will discharge home on same medication plus Pepcid. He will follow up with primary care in 1 to 2 weeks and Cardiology as discussed. Dictated by Nena Miller NP MD EMILY Cisse/MODL /[id number]
== END 2020-02-23 12:11 | disposition home or self-care (01) ==
LOC: ER 13:38 → ERHOLD 14:36 → MED/SURG2 17:35
PROVIDERS: ADMIT Internal Medicine; ATTEND Internal Medicine
DX: R07.9 Chest pain, unspecified (principal); I10 Essential (primary) hypertension; E11.9 Type 2 diabetes mellitus without complications; E78.5 Hyperlipidemia, unspecified; G47.33 Obstructive sleep apnea (adult) (pediatric); Z82.49 Family history of ischemic heart disease and other diseases of the circulatory system; Z83.3 Family history of diabetes mellitus; Z80.9 Family history of malignant neoplasm, unspecified; E66.9 Obesity, unspecified; Z68.33 Body mass index [BMI] 33.0-33.9, adult; Z72.89 Other problems related to lifestyle; Z20.828 Contact with and (suspected) exposure to other viral communicable diseases; Z79.82 Long term (current) use of aspirin; Z79.84 Long term (current) use of oral hypoglycemic drugs
CPT/HCPCS: 36415 ×2; 71045; 80053 ×2; 80061; 82550 ×2; 82553 ×2; 82948 ×2; 83036; 83735; 83880; 84100; 84443; 84484 ×2; 85025 ×2; 85379; 85610; 85730; 93005; 93306; 99284; C9113; G0378 ×2; J1650; J1817; J2270 ×2; J2405 ×2; J7030; U0002